=== PATIENT | male | born 1960 | race Caucasian/White ===

== ENCOUNTER → 2016-03-25 | Outpatient (CLI) | payer BC ==
[~2016-03-25] MED LIST: AMLO10TA4 PO; AZITTAB PO; CYM/30 PO; GABA400C PO; HYDR25TA4 PO; METO25TA3 PO; OXYC-57 PO; POTA20TA13 PO; PRED-301 PO
--- NOTE | 2016-03-25 19:23 | DIAGNOSTIC IMAGING REPORT ---
MRI OF THE LUMBAR SPINE WITHOUT IV CONTRAST CLINICAL HISTORY: Lumbar radiculopathy. COMPARISON STUDY: No priors. TECHNIQUE: MRI of the lumbar spine is performed utilizing various T1 and T2-weighted sequences in the axial and sagittal planes. IV contrast was not administered for this examination. FINDINGS: Lumbar spine: Vertebral body height and alignment are maintained throughout the lumbar spine. Marrow signal intensity subtly heterogeneous. No destructive bony lesion is seen. The transverse and spinous processes are intact as visualized. There is no evidence of spondylolysis. Tiny anterior osteophytes are noted in the lower lumbar region. A Schmorl's node is incidentally noted in the superior endplate of L2. Intervertebral discs: There is mild degenerative disc desiccation throughout the lumbar spine. The disc heights appear preserved. Paraspinal cord: The visualized spinal cord is normal in morphology and signal intensity. The conus medullaris terminates at the level of L1. The nerve roots of the cauda equina are normal in morphology. L1-L2: Unremarkable. L2-L3: There is mild posterior disc bulge. The central canal and neural foramina are widely patent. L3-L4: There is mild posterior disc bulge. The central canal and neural foramina are widely patent. There is mild subarticular stenosis. L4-L5: There is a small posterior disc bulge with annular fissure. The central canal and neural foramina are clear. There is mild bilateral subarticular stenosis. L5-S1: There is a small posterior disc bulge with annular fissure. The central canal and neural foramina are patent. There is mild bilateral subarticular stenosis. Facet joint effusions are noted. Mild facet arthropathy is of no consequence. Sacrum: There is significant marrow edema identified within the sacral ala bilaterally, right significantly greater than the left. Findings are consistent with bilateral sacral insufficiency fractures. A large Tarlov's cyst is noted at the level of L3 and measures up to 3 cm. Soft tissues: The paraspinous soft tissues are normal in appearance. The partially visualized retroperitoneal structures are grossly unremarkable, but incompletely assessed. IMPRESSION: 1. There is no large disc herniation, central canal stenosis, or significant neural foraminal narrowing seen throughout the lumbar spine. 2. Mild lumbosacral spondylosis as above. 3. There are bilateral sacral insufficiency fractures with significant associated marrow edema. Dictated: 03/25/2016 6:47 PM Transcribed: 03/25/2016 7:22 PM [id number] Electronically signed by: Ty Urrutia M.D. 03/25/2016 7:27 PM Dictated Date/Time: 03/25/2016 6:47 PM
== END | disposition home or self-care (01) ==
LOC: C.MRIBC 16:34
PROVIDERS: ATTEND Physical Medicine & Rehabilitation
DX: M47.27 Other spondylosis with radiculopathy, lumbosacral region (principal); M84.48XA Pathological fracture, other site, initial encounter for fracture

== ENCOUNTER → 2016-05-05 | Outpatient (CLI) | payer BC, OTHER | END | disposition home or self-care (01) | LOC: C.RDSM 07:45 | PROVIDERS: ATTEND Physical Medicine & Rehabilitation Sports Medicine | DX: M19.011 Primary osteoarthritis, right shoulder (principal); Z96.611 Presence of right artificial shoulder joint ==

== ENCOUNTER → 2016-07-14 | Outpatient (CLI) | payer BC ==
[~2016-07-14] MED LIST changes: +ACET-1256 PO; +AZIT-57 PO; +CYM30 PO; +HYDR25TA5 PO; +NRN400 PO; +NRV/10 PO; +POTA20TA16 PO; +PRD10 PO; +PRVHFAIN INH; +SPRIN INH; +SYMIN INH; +TPRSR/25 PO
== END | disposition home or self-care (01) ==
LOC: C.RDSM 12:05
PROVIDERS: ATTEND Physical Medicine & Rehabilitation Sports Medicine
DX: M48.48XA Fatigue fracture of vertebra, sacral and sacrococcygeal region, initial encounter for fracture (principal); X58.XXXA Exposure to other specified factors, initial encounter

== ENCOUNTER → 2016-07-18 | Outpatient (CLI) | payer BC ==
[~2016-07-18] MED LIST changes: +GADAVIST IV PRN
--- NOTE | 2016-07-18 14:02 | DIAGNOSTIC IMAGING REPORT ---
MRI right hip/pelvis LOWER EXTREMITY JOINT COM CLINICAL HISTORY: R STRESS FX SACROCOCCYGEAL REGION pain TECHNIQUE: Multiaxial MRI acquisition COMPARISON STUDY: None FINDINGS: Signal characteristics indicate nondisplaced cortical fractures of the right superior and inferior right pubic ring. This is considered nondisplaced. There are also vertical fractures of the right as well as left sacral regions immediately medial to the sacroiliac joints bilaterally. There are also nondisplaced. The modest amount of reactive bone marrow edema suggests that the post traumatic findings are subacute. The hips specifically are negative for acute abnormality. There is mild degenerative changes of the articular services. There is no evidence for acetabular protrusion. Bowel pattern is unremarkable. Signal characteristics of the muscular structures are unremarkable. IMPRESSION: 1. Vertical nondisplaced fractures of the right as well as left sacrum immediately medial to the sacroiliac joints. 2. Fracture of the right superior and inferior pubic ring, also nondisplaced.. 3. Post traumatic findings are felt to be subacute. No evidence for displacement. 4. Mild degenerative changes of the hips bilaterally with no acute bony abnormality of those structures. Electronically signed by: Isaías Blount M.D. 07/18/2016 2:01 PM Dictated Date/Time: 07/18/2016 1:53 PM
== END | disposition home or self-care (01) ==
LOC: C.MRI 12:35
PROVIDERS: ATTEND Physical Medicine & Rehabilitation Sports Medicine
DX: S32.19XA Other fracture of sacrum, initial encounter for closed fracture (principal); S32.501A Unspecified fracture of right pubis, initial encounter for closed fracture; X58.XXXA Exposure to other specified factors, initial encounter

== ENCOUNTER → 2016-12-31 | Day surgery (SDC) | payer BC ==
[2016-12-16 08:44] VITALS: Ht 188 cm; Wt 59.1 kg
[~2016-12-31] VITALS: Ht 188 cm; Wt 59.1 kg
[~2016-12-31] MED LIST changes: -ACET-1256 PO; -AZIT-57 PO; +BUPIVACAINE 0.25% 2.5MG/ML PF 10 ML VIAL ONE; -CYM30 PO; -GADAVIST IV PRN; -HYDR25TA5 PO; +IOPAMIDOL INJ 61% 15 ML VIAL ONE; +LIDOCAINE HCL 1% MPF 5 ML VIAL ONE; -NRN400 PO; -NRV/10 PO; -OXYC-57 PO; -POTA20TA16 PO; -PRD10 PO; -PRVHFAIN INH; -SPRIN INH; -SYMIN INH; -TPRSR/25 PO
--- NOTE | 2016-12-31 15:36 | History & Physical Bridge - SC ---
H&P Re-Evaluation Bridge Note: I have examined the patient, reviewed the History & Physical and in the interval since the performance of the History & Physical I have noted the following changes of clinical significance: No changes noted
[2016-12-31 15:51] VITALS: TEMP 37.2
--- NOTE | 2016-12-31 15:55 | Discharge Instructions ---
Discharge Instructions Date of Service Dec 31, 2016. Visit Reason for Visit: Sacroiliitis Discharge Discharge Diagnosis / Problem: low back pain Discharge Goals Goal(s): Decrease discomfort, Improve function Medications Stopped Medications Name(s): no blood thinners Activity Recommendations Activity Limitations: resume your previous activity Anesthesia . Post Anesthesia Instructions: If you have had General Anesthesia or IV Sedation: * Do not drive today. * Resume driving when surgeon permits. * Do not make important decisions or sign legal documents today. * Call surgeon for: 1. Temperature elevations greater than 101 degrees F. 2. Uncontrollable pain. 3. Excessive bleeding. 4. Persistent nausea and vomiting. 5. Medication intolerance (nausea, vomiting or rash). * For nausea and vomiting use only clear liquids such as: tea, soda, bouillon until nausea subsides, then gradually increase diet as tolerated. * If you have any concerns or questions, call your surgeon's office. If physician is unavailable and it is an emergency, call 911 or go to the nearest emergency room. . Diet Recommendations Recommended Home Diet: resume previous diet Procedures Procedures Performed: RIGHT SACROILIAC JOINT INJECTION Pending Studies Studies pending at discharge: no Medical Emergencies . Who to Call and When: Medical Emergencies: If at any time you feel your situation is an emergency, please call 911 immediately. . Non-Emergent Contact Non-Emergency issues call your: Specialist . . "Provider Documentation" section prepared by Aaron Yee. .
[2016-12-31 15:57] VITALS: BP 126/87; PULSE 57; O2SAT 96
--- NOTE | 2016-12-31 16:11 | OPERATIVE REPORT ---
DATE OF OPERATION: 12/31/2016 PREOPERATIVE DIAGNOSES: Right sacroiliitis, history of trauma. POSTOPERATIVE DIAGNOSES: Same. PROCEDURE: Right sacroiliac joint injection under fluoroscopic guidance. INDICATIONS: The patient is a 56-year-old white male who was evaluated in the office with a 1-year history of low back pain following a fall. He was localizing pain to the sacroiliac joint. His physical examination was consistent with this and he presents today for an SI joint injection to relieve the pain that he experienced emanating from the SI joint. PHYSICAL EXAMINATION: Pleasant male seated comfortably. He has point tenderness to palpation of the right SI joint. This is worse with extension. He had a positive Elva maneuver, positive sacral distraction and compression maneuvers. CONSENT: Verbal and written consent was obtained from the patient. Risks and benefits were reviewed. Risks include but are not limited to abscess and allergic reaction. The patient wishes to proceed. DESCRIPTION OF PROCEDURE: The patient was taken back to the special procedures room of the [facility] where he was maintained in a prone position. Backside was cleansed with Betadine x3 and a dry sterile dressing was applied. Fluoroscope was used to identify the right SI joint and the overlying skin was anesthetized with 2.5 mL of lidocaine 1% with a 25-gauge 1.5-inch needle. A 25-gauge 3.5-inch spinal needle was then directed into the joint. He then underwent injection with Isovue 300 contrast 0.25 of a mL, which demonstrated intraarticular uptake. He then underwent injection after negative aspiration of 40 mg of Depo-Medrol and 1.5 mL of bupivacaine 0.25%. Injection was well tolerated. DISPOSITION: 1. The patient was taken out into the discharge recovery area where he will be discharged home once discharge criteria have been met. 2. Follow up in the [facility] office in 2-4 weeks. I attest to the content of the Intraoperative Record and any orders documented therein. Any exception s are noted below.
== END | disposition home or self-care (01) ==
LOC: X.SURG 14:11
PROVIDERS: ATTEND Physical Medicine & Rehabilitation
DX: M46.1 Sacroiliitis, not elsewhere classified (principal); Z91.81 History of falling

== ENCOUNTER → 2017-01-19 | Outpatient (CLI) | payer BC ==
[~2017-01-19] MED LIST changes: +ACET-1256 PO; -BUPIVACAINE 0.25% 2.5MG/ML PF 10 ML VIAL ONE; +CYM30 PO; +HYDR25TA5 PO; -IOPAMIDOL INJ 61% 15 ML VIAL ONE; -LIDOCAINE HCL 1% MPF 5 ML VIAL ONE; +NRN400 PO; +NRV/10 PO; +POTA20TA16 PO; +TPRSR/25 PO
== END | disposition home or self-care (01) ==
LOC: C.RDSM 11:52
PROVIDERS: ATTEND Physical Medicine & Rehabilitation Sports Medicine
DX: R52 Pain, unspecified (principal)

== ENCOUNTER 2017-01-26 18:44 | Inpatient (IN) | payer BC ==
[~2017-01-26] VITALS: Ht 190.5 cm; Wt 57.8 kg
[~2017-01-26 18:44] MED LIST changes: -ACET-1256 PO; -CYM30 PO; -HYDR25TA5 PO; -NRN400 PO; -NRV/10 PO; -POTA20TA16 PO; -TPRSR/25 PO
[2017-01-26] MEDS ORDERED: METHYLPREDNISOLONE 125 MG VIAL IV STA (19:03)
[2017-01-26] MEDS ORDERED: MAGNESIUM SULFATE 1GM / D5W 1 GM BAG IV STA (19:03)
[2017-01-26] MEDS ORDERED: ALBUT/IPRATROP 3MG/0.5MG NEB 3 ML VIAL INH STA (19:03)
--- NOTE | 2017-01-26 19:07 | EMERGENCY ROOM VISIT NOTE ---
History Report prepared by Blaine: Js Bowens Under the Supervision of: Dr. Cecil Serrano M.D. First contact with patient: 18:51 Chief Complaint: SHORTNESS OF BREATH Stated Complaint: SOB - RESP Nursing Triage Summary: Pt presents with c/o SOB since Sat. NPC. Pulse ox 89% at home. Hx of ephysema. Pain in right hip. Denies cp. History of Present Illness The patient is a 57 year old male with a past medical history of an AAA, HTN, COPD, and VT, who presents to the ED with a cc of constant SOB beginning 2 days ago. Positive for a mild productive cough and cigarette smoking. Negative leg pain, leg swelling, and recent car travel. The patient states that his symptoms started 2 days ago, and since, he has not been able to take more than a few steps without feeling SOB. He notes that prior to 2 days ago, he had no restriction to his movement due to his breathing. He reports that he typically uses a Z pack and prednisone. He denies any history of blood clots and oxygen usage at home. The patient had a right SI joint injection by Dr. Yee. Source of History: patient Onset: 2 days ago Position: chest Quality: other (SOB) Timing: constant Modifying Factors (Worsening): exertion Associated Symptoms: + cough (mild productive cough) Note: He denies any leg pain and leg swelling. Review of Systems See HPI for pertinent positives and negatives. A total of ten systems were reviewed and were otherwise negative. Past Medical & Surgical Medical Problems: (1) Aortic aneurysm (2) COPD (chronic obstructive pulmonary disease) (3) History of right shoulder replacement (4) HTN (hypertension) (5) Hx of VT Family History Heart disease Lung disease Social History Smoking Status: Current Every Day Smoker Drug Use: none Marital Status: Housing Status: lives with significant other Occupation Status: employed Current/Historical Medications Scheduled Amlodipine Besylate (Amlodipine Besylate), 5 MG PO QAM Duloxetine HCl (Duloxetine HCl), 30 MG PO QAM Gabapentin (Gabapentin), 400 MG PO QID Hydrochlorothiazide (Hydrochlorothiazide), 25 MG PO QAM Metoprolol Succinate (Metoprolol Succinate ER), 12.5 MG PO QPM Potassium Ext Rel (Klor-Con), 20 MEQ PO QAM Scheduled PRN Acetaminophen (Tylenol), 1,000 MG PO Q6H PRN for Pain Azithromycin (Zithromax Z-Tc), 1 PKT PO UD PRN for Rescue Prednisone (Prednisone), 5 MG PO UD PRN for Rescue Allergies Coded Allergies: Penicillins (Verified Allergy, Severe, CONVULSIONS, 12/31/16) Lisinopril (Unverified Adverse Reaction, Unknown, FELT WEIRD, 12/31/16) Physical Exam Vital Signs Date Time Temp Pulse Resp B/P (MAP) Pulse Ox O2 Delivery O2 Flow Rate FiO2 01/26/17 19:55 85 22 143/92 93 Nasal Cannula 2.0 01/26/17 19:22 96 Nasal Cannula 2.0 01/26/17 19:22 96 Nasal Cannula 2.0 01/26/17 18:46 37.1 96 24 100/76 85 Room Air Physical Exam GENERAL: Awake, alert, well-appearing, NAD, labored breathing. HENT: Normocephalic, atraumatic. EYES: Normal conjunctiva. Sclera non-icteric. NECK: Supple. No nuchal rigidity. FROM. RESPIRATORY: CTAB, no rhonchi, wheezing, crackles, diffuse inspiratory and expiratory breathing, retraction of intercostal muscles. CARDIAC: RRR, no MRG ABDOMEN: Soft, NTND, BS+ MSK: No chest wall TTP, no LE jonathan, no calf pain. NEURO: GCS 15, CN 2-12 intact, moves all 4s on command SKIN: No rash or jaundice noted. Medical Decision & Procedures ER Provider Diagnostic Interpretation: Radiology results as stated below per my review and radiologist interpretation: CHEST ONE VIEW PORTABLE FINDINGS: Emphysematous change. No focal infiltrate. Slight chronic interstitial prominence. Operative changes right shoulder consistent with prior arthroplasty. IMPRESSION: Significant emphysematous change. No acute infiltrate. The above report was generated using voice recognition software. It may contain grammatical, syntax or spelling errors. Electronically signed by: Isaías Blount M.D. 01/26/2017 7:31 PM Laboratory Results 01/26/17 19:20 Red Blood Count 4.55, Mean Corpuscular Volume 88.6, Mean Corpuscular Hemoglobin 32.3, Mean Corpuscular Hemoglobin Concent 36.5, Mean Platelet Volume 9.5, Neutrophils (%) (Auto) 79.8, Lymphocytes (%) (Auto) 6.1, Monocytes (%) (Auto) 13.2, Eosinophils (%) (Auto) 0.6, Basophils (%) (Auto) 0.1, Neutrophils # (Auto ) 8.44, Lymphocytes # (Auto) 0.65, Monocytes # (Auto) 1.40, Eosinophils # (Auto ) 0.06, Basophils # (Auto) 0.01 01/26/17 19:20 Test 01/26/17 19:20 White Blood Count 10.58 K/uL (4.8-10.8) Red Blood Count 4.55 M/uL (4.7-6.1) Hemoglobin 14.7 g/dL (14.0-18.0) Hematocrit 40.3 % (42-52) Mean Corpuscular Volume 88.6 fL (80-100) Mean Corpuscular Hemoglobin 32.3 pg (25-34) Mean Corpuscular Hemoglobin Concent 36.5 g/dl (32-36) Platelet Count 196 K/uL (130-400) Mean Platelet Volume 9.5 fL (7.4-10.4) Neutrophils (%) (Auto) 79.8 % Lymphocytes (%) (Auto) 6.1 % Monocytes (%) (Auto) 13.2 % Eosinophils (%) (Auto) 0.6 % Basophils (%) (Auto) 0.1 % Neutrophils # (Auto) 8.44 K/uL (1.4-6.5) Lymphocytes # (Auto) 0.65 K/uL (1.2-3.4) Monocytes # (Auto) 1.40 K/uL (0.11-0.59) Eosinophils # (Auto) 0.06 K/uL (0-0.5) Basophils # (Auto) 0.01 K/uL (0-0.2) RDW Standard Deviation 39.4 fL (36.4-46.3) RDW Coefficient of Variation 12.3 % (11.5-14.5) Immature Granulocyte % (Auto) 0.2 % Immature Granulocyte # (Auto) 0.02 K/uL (0.00-0.02) Anion Gap 9.0 mmol/L (3-11) Est Creatinine Clear Calc Drug Dose 85.0 ml/min Estimated GFR () 115.9 Estimated GFR (Non- 100.0 BUN/Creatinine Ratio 20.0 (10-20) Calcium Level 8.8 mg/dl (8.5-10.1) Total Bilirubin 1.0 mg/dl (0.2-1) Aspartate Amino Transf (AST/SGOT) 15 U/L (15-37) Alanine Aminotransferase (ALT/SGPT) 19 U/L (12-78) Alkaline Phosphatase 172 U/L (45-117) Troponin I < 0.015 ng/ml (0-0.045) Total Protein 7.4 gm/dl (6.4-8.2) Albumin 3.4 gm/dl (3.4-5.0) Globulin 4.0 gm/dl (2.5-4.0) Albumin/Globulin Ratio 0.9 (0.9-2) Laboratory results reviewed by me Medications Administered Medications (Trade) Dose Ordered Sig/Noe Route Start Time Stop Time Status Last Admin Dose Admin Albuterol/ Ipratropium (Duoneb) 12 ml ONE STAT INH 01/26/17 19:03 01/26/17 19:05 DC 01/26/17 19:15 12 ML Magnesium Sulfate (Magnesium Sulfate) 1 gm NOW STAT IV 01/26/17 19:03 01/26/17 19:05 DC 01/26/17 19:16 1 GM Methylprednisolone Sodium Succinate (Solu-Medrol IV) 125 mg NOW STAT IV 01/26/17 19:03 01/26/17 19:05 DC 01/26/17 19:16 125 MG Azithromycin (Zithromax Tab) 500 mg NOW ONCE PO 01/26/17 19:15 01/26/17 19:16 DC 01/26/17 19:16 500 MG ECG Indication: SOB/dyspnea Rate (beats per minute): 88 Rhythm: normal sinus Findings: left axis deviation, other (Normal intervals, no STS changes or TWI) ED Course 1858: The patient was evaluated in room A9. A complete history and physical exam was performed. 2040: I reevaluated and updated the patient. He still has some difficult expiratory breathing. He is in agreement with the treatment plan. 2043: Upon reexamination, the patient was stable. I discussed the test results and treatment plan with Dr. Alex - [facility]. The patient will be evaluated for further management. Medical Decision The patient is a 57 year old male with a past medical history of an AAA, HTN, COPD, and VT, who presents to the ED with a cc of SOB beginning 2 days ago. Positive for a mild productive cough and cigarette smoking. Negative leg pain, leg swelling, and recent car travel. Differential diagnosis: Etiologies such as infections, reactive airway disease, pneumonia, pneumothorax , COPD, CHF, cardiac ischemia, pulmonary embolism, musculoskeletal, gastrointestinal, as well as others were entertained. Patient was seen and evaluated the bedside. Patient isn't been complaining of some shortness of breath and ongoing and Thursday. Patient states that more than 3 steps without being very short of breath and rest. Patient has no prior history of heart failure. Patient states he does have a minor heart attack but that he was not stented and he did not have a CABG. Patient states that he still smokes. Patient states he smoked about a half pack since last . Patient does complain of some cough but is unsure as to the color as he does not spit it out. Patient has a history of COPD but he's not been taking his inhalers or other medications. Patient was hypoxic and was fairly tachypneic with some mildly labored breathing with inspiratory and expiratory wheezing. Patient did have blood work, EKG, troponin. Patient also had a chest x-ray. Patient did receive DuoNeb's, azithromycin, steroids, and magnesium. Patient was reassessed. I did speak with the hospitalist who agreed to admit the patient for further evaluation and treatment. Medication Reconcilliation Current Medication List: was personally reviewed by me Blood Pressure Screening Patient's blood pressure: Elevated blood pressure Blood pressure disposition: Referred to PCP Consults Time Called: 2040 Consulting Physician: Dr. Alex - [facility] Thras[facility] Returned Call: 2043 Discussed the patient's case. The patient will be evaluated for further treatment and disposition. Impression Primary Impression: COPD with acute exacerbation Additional Impressions: Respiratory failure with hypoxia Encounter for smoking cessation counseling Hyponatremia Scribe Attestation The scribe's documentation has been prepared under my direction and personally reviewed by me in its entirety. I confirm that the note above accurately reflects all work, treatment, procedures, and medical decision making performed by me. Departure Information Dispostion Being Evaluated By Hospitalist Referrals Isaías Noriega M.D. (PCP) Forms HOME CARE DOCUMENTATION FORM, IMPORTANT VISIT INFORMATION Patient Instructions My [facility] Problem Qualifiers Additional Impressions: Respiratory failure with hypoxia Chronicity: acute Qualified Codes: J96.01 - Acute respiratory failure with hypoxia
[2017-01-26] MEDS ORDERED: AZITHROMYCIN 250 MG TAB PO ONE (19:15)
[2017-01-26] MEDS ORDERED: NRV/10 PO (19:33)
[2017-01-26] MEDS ORDERED: HYDR25TA5 PO (19:33)
[2017-01-26] MEDS ORDERED: TPRSR/25 PO (19:33)
[2017-01-26] MEDS ORDERED: NRN400 PO (19:33)
[2017-01-26] MEDS ORDERED: CYM30 PO (19:33)
[2017-01-26] MEDS ORDERED: POTA20TA16 PO (19:33)
--- NOTE | 2017-01-26 19:33 | DIAGNOSTIC IMAGING REPORT ---
CHEST ONE VIEW PORTABLE CLINICAL HISTORY: SOB, emphysema, hypoxia dyspnea COMPARISON STUDY: 05/21/2015 FINDINGS: Emphysematous change. No focal infiltrate. Slight chronic interstitial prominence. Operative changes right shoulder consistent with prior arthroplasty. IMPRESSION: Significant emphysematous change. No acute infiltrate. The above report was generated using voice recognition software. It may contain grammatical, syntax or spelling errors. Electronically signed by: Isaías Blount M.D. 01/26/2017 7:31 PM Dictated Date/Time: 01/26/2017 7:30 PM
[2017-01-26] MEDS ORDERED: ACET-1256 PO (19:35)
[2017-01-26 19:46] LABS: BASO % 0.1 %; BASO ABS # 0.01 K/uL (0-0.2); COMPLETE YES; EOS % 0.6 %; HEMATOCRIT 40.3 % (42-52); IG% 0.2 %; LYMPH % 6.1 %; LYMPH ABS # 0.65 K/uL (1.2-3.4); MEAN CELL VOLUME 88.6 fL (80-100); MEAN CORPUSCULAR HEMOGLOBIN 32.3 pg (25-34); MEAN CORPUSCULAR HGB CONC 36.5 g/dl (32-36); MEAN PLATELET VOLUME 9.5 fL (7.4-10.4); MONO % 13.2 %; NEUT % 79.8 %; PLATELET COUNT 196 K/uL (130-400); RED BLOOD COUNT 4.55 M/uL (4.7-6.1); WHITE BLOOD COUNT 10.58 K/uL (4.8-10.8)
[2017-01-26 20:09] LABS: CALCIUM 8.8 mg/dl (8.5-10.1); CREATININE 0.77 mg/dl (0.60-1.40); POTASSIUM 3.2 mmol/L (3.5-5.1)
[2017-01-26 20:12] LABS: ALB/GLOB RATIO 0.9 (0.9-2)
[2017-01-26] MEDS ORDERED: ENOXAPARIN 40 MG/0.4 ML SYR SC SCH (21:00)
[2017-01-26] MEDS ORDERED: MAGNESIUM HYDROXIDE SUSP 30 ML UDC PO PRN (21:00)
[2017-01-26] MEDS ORDERED: ONDANSETRON INJ 2 MG/ML 2 ML VIAL IV PRN (21:00)
[2017-01-26] MEDS ORDERED: ALUMINUM/MAGNESIUM/SIMETH (MAALOX MAX) 30 ML UDC PO PRN (21:00)
[2017-01-26] MEDS ORDERED: ACETAMINOPHEN 325 MG TAB PO PRN (21:00)
[2017-01-26 21:54] VITALS: BP 99/66; PULSE 85; TEMP 37; O2SAT 92; Ht 190.5 cm; Wt 57.8 kg
[2017-01-26] MEDS: SODIUM CHLORIDE 0.9% 1000ML 1,000 ML IV SCH (22:08)
[2017-01-26 22:24] VITALS: BP 103/72
[2017-01-26 22:36] LABS: VEN BLD GAS O2 SATURATION 86.8 %; VEN BLOOD GAS BASE EXCESS 3.7 mEq/L
[2017-01-26] MEDS: METOPROLOL SUCC 25MG EXT REL TAB PO SCH (22:36)
[2017-01-26] MEDS: GABAPENTIN 400 MG CAP PO SCH ×2 (22:36→22:37)
[2017-01-26 22:41] LABS: INR 1.1 (0.9-1.1); PROTHROMBIN TIME (PATIENT) 11.4 SECONDS (9.0-12.0)
--- NOTE | 2017-01-26 22:41 | History and Physical ---
History & Physical Date & Time of Service: Jan 26, 2017 at 22:18 Chief Complaint: Copd With Acute Exacerbation Primary Care Physician: Isaías Noriega M.D. History of Present Illness Source: patient, clinic records, hospital records This is a 57 year old male with a PMH of severe COPD, ongoing tobacco use disorder, weight loss, HTN, dilatation of thoracic aorta, chronic shoulder arthralgia - presents with worsening shortness of breath - states he could not get a deep breath in; could not move around due to worsening shortness of breath - also had a cough and sputum production. This has been ongoing for around 3 days. He asked his PCP for a script for a rescue kit, which includes a prednisone taper and a Z-awais - he did not receive this in time as his breathing became worse and he had to come to the ER. Upon presentation, he had a CXR suggesting emphysematous changes. He received solu-medrol in the ED and he felt better. States he still smokes about 4-5 cigarettes daily. He states he has lost an unknown amount of weight in the past year and cannot put it back on. Denies fevers/chills, denies chest pain/palpitations, no nausea/vomiting/ diarrhea. Past Medical/Surgical History Medical Problems: (1) Aortic aneurysm Status: Chronic (2) COPD (chronic obstructive pulmonary disease) Status: Chronic (3) History of right shoulder replacement Status: Resolved (4) HTN (hypertension) Status: Chronic (5) Hx of GA Status: Resolved Family History Heart disease Lung disease Social History Smoking Status: Current Every Day Smoker Drug Use: none Marital Status: Housing status: lives with family Occupational Status: employed Immunizations History of Influenza Vaccine: No History of Tetanus Vaccine?: UNSURE History of Pneumococcal: No History of Hepatitis B Vaccine: No Multi-Drug Resistant Organisms History of MDRO: No Allergies Coded Allergies: Penicillins (Verified Allergy, Severe, CONVULSIONS, 12/31/16) Lisinopril (Unverified Adverse Reaction, Unknown, FELT WEIRD, 12/31/16) Home Medications Scheduled Amlodipine Besylate (Amlodipine Besylate), 5 MG PO QAM Duloxetine HCl (Duloxetine HCl), 30 MG PO QAM Gabapentin (Gabapentin), 400 MG PO QID Hydrochlorothiazide (Hydrochlorothiazide), 25 MG PO QAM Metoprolol Succinate (Metoprolol Succinate ER), 12.5 MG PO QPM Potassium Ext Rel (Klor-Con), 20 MEQ PO QAM Scheduled PRN Acetaminophen (Tylenol), 1,000 MG PO Q6H PRN for Pain Azithromycin (Zithromax Z-Awais), 1 PKT PO UD PRN for Rescue Prednisone (Prednisone), 5 MG PO UD PRN for Rescue Review of Systems Constitutional: + weight loss, + weakness, No fever, No chills, No sweats, No fatigue Eyes: No worsening of vision ENT: No hearing loss Respiratory: + cough, + sputum, + wheezing, + shortness of breath, + dyspnea on exertion, No dyspnea at rest, No hemoptysis Cardiovascular: No chest pain, No edema, No palpitations Abdomen: No pain, No nausea, No vomiting, No diarrhea, No constipation, No GI bleeding Musculoskeletal: + joint pain (chronic R shoulder pain), No muscle pain Genitourinary - Male: No hematuria, No dysuria, No urinary frequency, No urinary urgency Neurologic: + weakness, No numbness/tingling, No vertigo, No balance problems Psychiatric: No depression symptoms, No anxiety, No insomnia Endocrine: No fatigue Hematologic / Lymphatic: No abnormal bleeding/bruising Integumentary: No rash Allergic / Immunologic: No environmental allergies, No seasonal allergies Physical Exam Vital Signs Date Time Temp Pulse Resp B/P (MAP) Pulse Ox O2 Delivery O2 Flow Rate FiO2 01/26/17 21:54 37.0 85 20 99/66 92 Nasal Cannula 2.0 01/26/17 21:14 94 18 96/65 92 Nasal Cannula 2.0 01/26/17 19:55 85 22 143/92 93 Nasal Cannula 2.0 01/26/17 19:22 96 Nasal Cannula 2.0 01/26/17 19:22 96 Nasal Cannula 2.0 01/26/17 18:46 37.1 96 24 100/76 85 Room Air General Appearance: + mild distress (secondary to shortness of breath; supplemental O2 via NC), + cachetic, + thin Head: normocephalic, atraumatic Eyes: normal inspection ENT: hearing grossly normal Neck: supple Respiratory/Chest: no respiratory distress, no accessory muscle use, + decreased breath sounds, + wheezing, + pertinent finding (chset tightness with decreased aeration throughout the lung zamora bilaterally) Cardiovascular: regular rate, rhythm, no edema, no gallop, no JVD, no murmur, normal peripheral pulses Abdomen/GI: normal bowel sounds, non tender, soft Extremities/Musculoskelatal: normal capillary refill, no pedal edema Neurologic/Psych: no motor/sensory deficits, alert, normal mood/affect Skin: normal color Lymphatic: no adenopathy Diagnostics Laboratory Results Results Past 24 Hours Test 01/26/17 18:53 01/26/17 19:20 01/26/17 20:56 01/26/17 22:09 Range/Units White Blood Count 10.58 4.8-10.8 K/uL Red Blood Count 4.55 4.7-6.1 M/uL Hemoglobin 14.7 14.0-18.0 g/dL Hematocrit 40.3 42-52 % Mean Corpuscular Volume 88.6 80-100 fL Mean Corpuscular Hemoglobin 32.3 25-34 pg Mean Corpuscular Hemoglobin Concent 36.5 32-36 g/dl Platelet Count 196 130-400 K/uL Mean Platelet Volume 9.5 7.4-10.4 fL Neutrophils (%) (Auto) 79.8 % Lymphocytes (%) (Auto) 6.1 % Monocytes (%) (Auto) 13.2 % Eosinophils (%) (Auto) 0.6 % Basophils (%) (Auto) 0.1 % Neutrophils # (Auto) 8.44 1.4-6.5 K/uL Lymphocytes # (Auto) 0.65 1.2-3.4 K/uL Monocytes # (Auto) 1.40 0.11-0.59 K/uL Eosinophils # (Auto) 0.06 0-0.5 K/uL Basophils # (Auto) 0.01 0-0.2 K/uL RDW Standard Deviation 39.4 36.4-46.3 fL RDW Coefficient of Variation 12.3 11.5-14.5 % Immature Granulocyte % (Auto) 0.2 % Immature Granulocyte # (Auto) 0.02 0.00-0.02 K/uL Sodium Level 123 136-145 mmol/L Potassium Level 3.2 3.5-5.1 mmol/L Chloride Level 83 98-107 mmol/L Carbon Dioxide Level 30 21-32 mmol/L Anion Gap 9.0 3-11 mmol/L Blood Urea Nitrogen 15 7-18 mg/dl Creatinine 0.77 0.60-1.40 mg/dl Est Creatinine Clear Calc Drug Dose 85.0 ml/min Estimated GFR () 115.9 Estimated GFR (Non- 100.0 BUN/Creatinine Ratio 20.0 10-20 Random Glucose 92 70-99 mg/dl Calcium Level 8.8 8.5-10.1 mg/dl Total Bilirubin 1.0 0.2-1 mg/dl Aspartate Amino Transf (AST/SGOT) 15 15-37 U/L Alanine Aminotransferase (ALT/SGPT) 19 12-78 U/L Alkaline Phosphatase 172 45-117 U/L Troponin I < 0.015 0-0.045 ng/ml Total Protein 7.4 6.4-8.2 gm/dl Albumin 3.4 3.4-5.0 gm/dl Globulin 4.0 2.5-4.0 gm/dl Albumin/Globulin Ratio 0.9 0.9-2 Diagnostic Radiology CHEST ONE VIEW PORTABLE CLINICAL HISTORY: SOB, emphysema, hypoxia dyspnea COMPARISON STUDY: 05/21/2015 FINDINGS: Emphysematous change. No focal infiltrate. Slight chronic interstitial prominence. Operative changes right shoulder consistent with prior arthroplasty. IMPRESSION: Significant emphysematous change. No acute infiltrate. EKG Normal sinus rhythm Biatrial enlargement Left axis deviation Impression Assessment and Plan This is a 57 year old male with a PMH of severe COPD, ongoing tobacco use disorder, weight loss, HTN, dilatation of thoracic aorta, chronic shoulder arthralgia - presents with worsening shortness of breath Acute COPD Exacerbation patient with ongoing tobacco use CXR = emphysematous changes as per records, he has severe COPD, but does not use any maintenance medications /inhalers was given IV steroids in the ED as well as nebulizer treatments and felt better will give IV solu-medrol 40mg q8hrs given Azithromycin 500mg x1 in the ED, will continue 250mg x4 days duonebs as needed consulted pulmonology - patient should be on maintenance inhalers with outpatient f/u with pulm Tobacco Use Disorder patient with ongoing tobacco use; about 4-5 cigarettes per day counseled on cessation patient with weight loss, hyponatremia, elevated alk phos will check diagnostic CT chest to r/o malignancy Hyponatremia gentle IV hydration check urine, serum osm HTN continue amlodipine holding HCTZ for now due to hyponatremia Dilatation of Thoracic Aorta continue b-wesley DVT ppx Lovenox FULL CODE Advanced Directives Existing Living Will: No Existing Power of Combination Machine Tool Setter: No VTE Prophylaxis VTE Risk Assessment Done? Y/N: Yes Risk Level: Moderate
[2017-01-27] VITALS (11 sets, daily range): BP systolic 95–110; BP diastolic 58–73; PULSE 64–81; TEMP 36.4–36.9; O2SAT 87–97
[2017-01-27 02:40] LABS: HEMATOCRIT 37.3 % (42-52); MEAN CELL VOLUME 87.8 fL (80-100); MEAN CORPUSCULAR HEMOGLOBIN 32.2 pg (25-34); MEAN CORPUSCULAR HGB CONC 36.7 g/dl (32-36); MEAN PLATELET VOLUME 9.1 fL (7.4-10.4); PLATELET COUNT 175 K/uL (130-400); RED BLOOD COUNT 4.25 M/uL (4.7-6.1); WHITE BLOOD COUNT 9.18 K/uL (4.8-10.8)
[2017-01-27 03:10] LABS: BLOOD UREA NITROGEN 13 mg/dl (7-18); BUN/CREATININE RATIO 17.5 (10-20); CALCIUM 8.2 mg/dl (8.5-10.1); CARBON DIOXIDE 30 mmol/L (21-32); CHLORIDE 87 mmol/L (98-107); CREATININE 0.77 mg/dl (0.60-1.40); GLUCOSE 178 mg/dl (70-99); MAGNESIUM 2.1 mg/dl (1.8-2.4); POTASSIUM 3.3 mmol/L (3.5-5.1); SODIUM 125 mmol/L (136-145)
[2017-01-27 03:15] LABS: CKMB/CK RATIO 2.4 (0-3.0)
[2017-01-27] MEDS: METHYLPREDNISOLONE IV 40 MG in SYRINGE 0 ML IV SCH ×3 (04:45→20:31)
[2017-01-27] MEDS: ALBUT/IPRATROP 3MG/0.5MG NEB 3 ML VIAL INH SCH ×4 (07:18→19:10)
[2017-01-27] MEDS: ENOXAPARIN 30 MG/0.3 ML SYR SC SCH (07:36)
[2017-01-27] MEDS: GABAPENTIN 400 MG CAP PO SCH ×4 (07:37→20:32)
[2017-01-27] MEDS: AMLODIPINE BESYLATE 5 MG TAB PO SCH (07:37)
[2017-01-27] MEDS: AZITHROMYCIN 250 MG TAB PO SCH (07:38)
[2017-01-27] MEDS: DULOXETINE (CYMBALTA) 30 MG CAP PO SCH (07:38)
[2017-01-27] MEDS ORDERED: INFLUENZA ADMINISTRATION CHARGE ONE (08:00)
[2017-01-27] MEDS ORDERED: BOOST BREEZE NUTRITION DRINK 1 BOX PO SCH (08:00)
[2017-01-27] MEDS ORDERED: PNEUMOCOCCAL ADMINISTRATION CHARGE ONE (08:00)
[2017-01-27] MEDS ORDERED: PNEUMOCOCCAL POLYSACCHARIDES 25 MCG/0.5 ML VIAL/SYR IM. ONE (08:00)
[2017-01-27] MEDS ORDERED: INFLUENZA VIRUS QUAD VACCINE 0.5 ML SYR IM. ONE (08:00)
[2017-01-27] MEDS ORDERED: OPTIRAY 320 IV PRN (08:45)
[2017-01-27] MEDS ORDERED: POTASSIUM CHLORIDE 20 MEQ TABCR PO SCH (09:00)
--- NOTE | 2017-01-27 09:20 | DIAGNOSTIC IMAGING REPORT ---
CT SCAN OF THE CHEST WITH IV CONTRAST CLINICAL HISTORY: Weight loss. COPD exacerbation. COMPARISON STUDY: Chest x-ray dated 01/26/2017. Chest CT scans dated 05/21/2015 and 02/01/2013. TECHNIQUE: Following the IV administration of 119 cc of Optiray 320, CT scan of the thorax was performed from the thoracic inlet to the upper abdomen. Images are reviewed in the axial, sagittal, and coronal planes. IV contrast was administered without complication. A dose lowering technique was utilized adhering to the principles of ALARA. CT DOSE: 237.83 mGy.cm FINDINGS: Thyroid: Imaged portions of the thyroid gland are normal in size and attenuation. Thoracic aorta: There is mild atherosclerotic calcification of the thoracic aorta. There is mild aneurysmal dilatation of the ascending thoracic aorta which measures up to 4.3 cm. The remainder of the thoracic aorta is normal in caliber, and the arch demonstrates standard 3-vessel anatomy. No dissection is seen. Pulmonary vasculature: The pulmonary trunk is normal in caliber. There are no filling defects identified in the central pulmonary vessels to indicate pulmonary embolus. Note that this examination was not protocoled for evaluation of the pulmonary arteries. Heart: The heart is normal in size and configuration, and without pericardial effusion. The coronary arteries are densely calcified. Lungs and pleural spaces: Advanced emphysema is identified with biapical bullous change. Secretions are noted in the trachea. Mucous plugging/secretions are present within the lower lobe airways bilaterally. There is no airspace consolidation or pleural effusion. A small fat-containing Bochdalek hernia is seen at the right lung base. Diffuse peribronchial thickening is identified. There is an irregular groundglass lesion in the left upper lobe seen on image #144 and measuring 1.3 cm. This contains tiny central cystic spaces, end is significantly more apparent than on the 2016 examination. A similar-appearing lesion in the right lower lobe as seen on image #183 and measures up to 0.9 cm. This is also increasingly conspicuous from previous. A similar-appearing lesion in the right upper lobe as seen on image #146 and measures up to 1.3 cm. This is new from previous. Mediastinum: There is no mediastinal lymphadenopathy. Jael: Clear. Axillae: There is no axillary lymphadenopathy. Upper abdomen: Partially visualized upper abdominal viscera is within normal limits. Skeletal structures: Mild degenerative change and hyperkyphosis are noted in the thoracic spine. A hemangioma is noted in the body of L3. No lytic or blastic bony lesions are seen. There are ovoid low-attenuation lesions present within the right neural foramina at T8-T9, T9-T10, T10-T11, and T11-T12. Similar appearing low-attenuation lesion is seen on the left at T9-T10, T10-T11, and T11-T12. These are unchanged from prior examinations. A right shoulder arthroplasty is in place. Soft tissues: The patient is cachectic. IMPRESSION: 1. Advanced emphysema. 2. There is no lobar consolidation or pleural effusion. Mild diffuse peribronchial thickening suggests reactive airway disease. Clinical correlation will be required. 3. There are 3 irregular groundglass lesions with central cystic foci identified in the left upper lobe, the right upper lobe, and the right lower lobe. These measure up to 1.3 cm, and at least 2 of these are significantly more conspicuous than on the 2016 examination. Although these could be on an infectious/inflammatory basis, neoplasm is the diagnosis of exclusion. A follow-up chest CT in 1-2 months time is recommended for reassessment. 4. Again seen is aneurysmal dilatation of the ascending thoracic aorta which measures up to 4.3 cm. 5. There are numerous low-attenuation lesions identified within the neural foramina of the thoracic spine as above. These are not significantly changed dating back to 2013. Top differential considerations include small pseudomeningoceles, nerve sheath cysts, or nerve sheath tumors such as schwannomas. These are of doubtful significance given long-term stability. 6. Additional findings as above. Electronically signed by: Ty Urrutia M.D. 01/27/2017 9:18 AM Dictated Date/Time: 01/27/2017 8:48 AM
[2017-01-27] MEDS: SODIUM CHLORIDE 0.9% 1000ML 1,000 ML IV SCH ×2 (10:24→23:23)
--- NOTE | 2017-01-27 11:15 | Progress Note ---
Medicine Progress Note Date & Time of Visit: Jan 27, 2017 at 11:15 . Subjective No fever. Persistent congested cough, nonproductive. Less SOB. No chest pain. No nausea, vomiting, diarrhea. No urinary symptoms. . Objective Last 8 Hrs Date Time Temp Pulse Resp B/P (MAP) Pulse Ox O2 Delivery O2 Flow Rate FiO2 01/27/17 08:00 Nasal Cannula 2.0 01/27/17 07:51 36.5 69 16 110/73 (85) 87 Room Air 01/27/17 07:18 73 16 90 Nasal Cannula 2.0 01/27/17 05:07 36.4 65 17 103/71 (82) 97 Room Air 01/27/17 04:00 Nasal Cannula 2.0 Physical Exam: General- mild tachypnea at rest Lungs- diffuse moderate wheezing, scattered rhonchi Heart- RRR, no murmur or gallop appreciated Abdomen- + BS, soft, nontender Extremities- no pretibial edema or calf tenderness Neuro- alert, oriented Skin- warm and dry . Laboratory Results: Last 24 Hours Test 01/26/17 19:20 01/26/17 22:19 01/27/17 02:23 01/27/17 10:49 White Blood Count 10.58 K/uL 9.18 K/uL Red Blood Count 4.55 M/uL 4.25 M/uL Hemoglobin 14.7 g/dL 13.7 g/dL Hematocrit 40.3 % 37.3 % Mean Corpuscular Volume 88.6 fL 87.8 fL Mean Corpuscular Hemoglobin 32.3 pg 32.2 pg Mean Corpuscular Hemoglobin Concent 36.5 g/dl 36.7 g/dl Platelet Count 196 K/uL 175 K/uL Mean Platelet Volume 9.5 fL 9.1 fL Neutrophils (%) (Auto) 79.8 % Lymphocytes (%) (Auto) 6.1 % Monocytes (%) (Auto) 13.2 % Eosinophils (%) (Auto) 0.6 % Basophils (%) (Auto) 0.1 % Neutrophils # (Auto) 8.44 K/uL Lymphocytes # (Auto) 0.65 K/uL Monocytes # (Auto) 1.40 K/uL Eosinophils # (Auto) 0.06 K/uL Basophils # (Auto) 0.01 K/uL RDW Standard Deviation 39.4 fL 39.4 fL RDW Coefficient of Variation 12.3 % 12.3 % Immature Granulocyte % (Auto) 0.2 % Immature Granulocyte # (Auto) 0.02 K/uL Sodium Level 123 mmol/L 125 mmol/L Potassium Level 3.2 mmol/L 3.3 mmol/L Chloride Level 83 mmol/L 87 mmol/L Carbon Dioxide Level 30 mmol/L 30 mmol/L Anion Gap 9.0 mmol/L 8.0 mmol/L Blood Urea Nitrogen 15 mg/dl 13 mg/dl Creatinine 0.77 mg/dl 0.77 mg/dl Est Creatinine Clear Calc Drug Dose 85.0 ml/min 85.0 ml/min Estimated GFR () 115.9 115.9 Estimated GFR (Non- 100.0 100.0 BUN/Creatinine Ratio 20.0 17.5 Random Glucose 92 mg/dl 178 mg/dl Calcium Level 8.8 mg/dl 8.2 mg/dl Total Bilirubin 1.0 mg/dl Aspartate Amino Transf (AST/SGOT) 15 U/L Alanine Aminotransferase (ALT/SGPT) 19 U/L Alkaline Phosphatase 172 U/L Troponin I < 0.015 ng/ml < 0.015 ng/ml Total Protein 7.4 gm/dl Albumin 3.4 gm/dl Globulin 4.0 gm/dl Albumin/Globulin Ratio 0.9 Prothrombin Time 11.4 SECONDS Prothromb Time International Ratio 1.1 Venous Blood pH 7.47 Venous Blood Partial Pressure CO2 39 mmHg Venous Blood Partial Pressure O2 53 mmHg Venous Blood HCO3 28 mmol/L Venous Blood Oxygen Saturation 86.8 % Venous Blood Base Excess 3.7 mEq/L Osmolality 257 mOsm/kg Magnesium Level 2.1 mg/dl Total Creatine Kinase 78 U/L Creatine Kinase MB 1.9 ng/ml Creatine Kinase MB Ratio 2.4 Assessment & Plan EXACERBATION OF COPD Presented with cough and worsening dyspnea. Chest x-ray showed emphysematous changes, no infiltrates. Receiving IV steroids, azithromycin, nebs. Transition to oral steroids. HYPOXIA O2 sat in ED 85% on RA. Hypoxia secondary to exacerbation COPD. Titrate supplemental O2. ABNORMAL CT OF CHEST CT demonstrated 3 irregular groundglass lesions in the upper lobes, measuring up to 13 mm. Follow-up recommended. Pulmonary Medicine consulted. HYPERTENSION Continue metoprolol and amlodipine. Hold HCTZ due to hyponatremia. ANEURYSM THORACIC AORTA Previously noted. Stable at 4.[address] LESIONS NEURAL FORAMINA THORACIC SPINE Noted on CT of chest. Per Radiology: "These are not significantly changed dating back to 2012. Top differential considerations include small pseudomeningoceles, nerve sheath cysts, or nerve sheath tumors such as schwannomas. These are of doubtful significance given long-term stability." WEIGHT LOSS Possibly due to pulmonary cachexia. CT chest as noted above. Check TSH. Assure that routine cancer screening in current. HYPONATREMIA Probably secondary to SIADH and / or HCTZ. Fluid restriction. Follow. VTE PROPHYLAXIS SQ enoxaparin. Ambulate. DISPOSITION Expected discharge to home. Family Medicine follow-up with Dr. Noriega. . Current Inpatient Medications: Current Inpatient Medications Medications (Trade) Dose Ordered Sig/Noe Route Start Time Stop Time Status Last Admin Dose Admin Sodium Chloride 1,000 ml @ 80 mls/hr [id number] IV 01/26/17 21:58 02/25/17 21:57 01/27/17 10:24 80 MLS/HR Acetaminophen (Tylenol Tab) 650 mg Q4H PRN PO 01/26/17 21:00 02/25/17 20:59 Al Hydrox/Mg Hydrox/Simethicone (Maalox Max Susp) 15 ml Q4H PRN PO 01/26/17 21:00 02/25/17 20:59 Magnesium Hydroxide (Milk Of Magnesia Susp) 30 ml Q12H PRN PO 01/26/17 21:00 02/25/17 20:59 Ondansetron HCl (Zofran Inj) 4 mg Q6H PRN IV 01/26/17 21:00 02/25/17 20:59 Duloxetine HCl (Cymbalta Cap) 30 mg QAM PO 01/27/17 09:00 02/26/17 08:59 01/27/17 07:38 30 MG Gabapentin (Neurontin Cap) 400 mg QID PO 01/26/17 21:00 02/25/17 20:59 01/27/17 07:37 400 MG Metoprolol Succinate (Toprol Xl Tab) 12.5 mg QPM PO 01/26/17 21:00 02/25/17 20:59 Potassium Chloride (Klor-Con Tab) 20 meq QAM PO 01/27/17 09:00 02/26/17 08:59 01/27/17 07:38 20 MEQ Amlodipine Besylate (Norvasc Tab) 5 mg QAM PO 01/27/17 09:00 02/26/17 08:59 01/27/17 07:37 5 MG Albuterol/ Ipratropium (Duoneb) 3 ml QIDR INH 01/27/17 08:00 02/26/17 07:59 01/27/17 07:18 3 ML Methylprednisolone Sodium Succinate 40 mg/Syringe 0.64 ml @ 1.5 mls/min Q8H IV 01/27/17 04:00 02/26/17 03:59 01/27/17 04:45 1.5 MLS/MIN Azithromycin (Zithromax Tab) 250 mg QAM PO 01/27/17 09:00 01/30/17 23:59 01/27/17 07:38 250 MG Enoxaparin Sodium (Lovenox Inj) 30 mg Q24H SC 01/27/17 09:00 02/25/17 08:59 01/27/17 07:36 30 MG Enteral Nutritional Formula (Boost Breeze Nutritional Drink) 1 box BIDM PO 01/27/17 08:00 02/26/17 07:59 01/27/17 07:36 1 BOX Ioversol (Optiray 320) 125 ml UD PRN IV 01/27/17 08:45 01/31/17 08:44
[2017-01-27 11:51] LABS: CKMB/CK RATIO 2.9 (0-3.0)
--- NOTE | 2017-01-27 12:37 | Pulmonary Consultation ---
History General Date of Service: Jan 27, 2017. Stated Complaint: Copd With Acute Exacerbation HPI The patient is a 57 year old male who presents to [facility] with complaints of Copd With Acute Exacerbation. The patient's primary care provider is Isaías Noriega M.D.. Mr. Pedraza is a 57-year-old male with past medical history of severe COPD, with current tobacco use, hypertension, vitamin D deficiency and thoracic aortic aneurysm repair presents with several breath associated with cough and dyspnea. He states that symptoms started about 2-3 days prior to admission there was associated with cough and whitish to yellowish productive sputum. He was working up until Thursday, but states he started feel weak about two weeks prior. He denies any fevers, chills, chest pain, palpitations, lightheadedness, dizziness. Denies any nausea, vomiting or diarrhea. He does admit to weight loss recently but is unable to quantify the amount. He has had changes in appetite over the last few weeks. He denies any hemoptysis or night sweats. He denies any lower extremity edema, orthopnea and paroxysmal nocturnal dyspnea. He still is smoking about 4-5 cigarettes a day. He was seen by Dr. Gallegos in the pulmonary clinic last in 2015. PFT in July 2015 showed severe obstructive ventilatory defect. FEV1 is 49% predicted. He he had a significant bronchodilator response. TLC 92% and DLCO was 32%. He is only on albuterol when necessary. Initial vital signs were temperature 37.1, pulse 96, respiratory rate 24, blood pressure 100/76 saturating 85% on room air. He was placed on 2 L nasal cannula with increased SaO2 to 93%. Laboratory data showed white blood cell count of 10, hemoglobin of 14, platelet count of 196. She was significant for sodium of 123, potassium 3.2, chloride 83 , carbon dioxide 30, BUN 15 creatinine 0.77 and glucose of 92. LFTs were within normal limits except for alkaline phosphatase of 172. Troponin 2 were negative. PT 11.4 and INR 1.1. VBG was 7.47/39/53/28/86.8%. EKG showed normal sinus rhythm with a ventricular rate of 88 bpm with biatrial enlargement ; left axis deviation. Chest x-ray consistent with emphysema. No focal infiltrate. There are slight chronic interstitial changes as well as postoperative right shoulder changes consistent with arthroplasty. In the ER he was given Solu-Medrol 125 mg 1 dose, albuterol/ipratropium 12 mm 1 dose, magnesium sulfate 1 g and azithromycin 500 mg. He was admitted for COPD exacerbation. CT chest was done this morning, negative for pulmonary embolism. There were 3 irregular groundglass lesions with central cystic foci in the left upper lobe, the right upper lobe and the right lower lobe. 2 of these measuring at least 1.3 cm and a more prominent from previous CT done in 2016. Advanced emphysema was again seen. Multiple low attenuated lesions seen within the neural foramina that appeared to be stable. Today, patient states that he is feeling much better from when he came to hospital. He would like to go home. Historian: patient Onset: other (several days prior to arrival) Complaint Status: persistent Review of Systems Constitutional: reports: as stated in HPI Eyes: reports: as stated in HPI ENT: reports: as stated in HPI Cardiovascular: reports: as stated in HPI Respiratory: reports: as stated in HPI Gastrointestinal: reports: as stated in HPI Genitourinary - Male: reports: as stated in HPI Musculoskeletal: reports: as stated in HPI Integumentary: reports: as stated in HPI Neurologic: reports: as stated in HPI Psychiatric: reports: as stated in HPI Endocrine: as stated in HPI Hematologic / Lymphatic: as stated in HPI Allergic / Immunologic: as stated in HPI All Other Symptoms All Other Systems: Reviewed and Negative Past Medical History Past Medical History: Severe COPD. Tobacco use disorder. Hypertension. Vitamin D deficiency. Thoracic aortic aneurysm. Past Surgical History: Right shoulder biopsy/arthroplasty Family History Heart disease Lung disease Both parents have history of emphysema. Father smoked for many years. Mother probably has secondary smoke exposures. He denies any lung disease in siblings or children. Social History Current tobacco use 1/2 ppd. He has been smoking about 40 pk year history of smoking. Denies alcohol or illicit use. 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 Hx Tobacco Use In Past Year?: Yes Smoking Status: Current Every Day Smoker Marital status: Housing status: lives with family Occupational Status: employed Immunizations History of Influenza Vaccine: No History of Tetanus Vaccine?: UNSURE History of Pneumococcal: No History of Hepatitis B Vaccine: No History of MDRO History of MDRO: No Allergies Coded Allergies: Penicillins (Verified Allergy, Severe, CONVULSIONS, 12/31/16) Lisinopril (Unverified Adverse Reaction, Unknown, FELT WEIRD, 12/31/16) Current Medications Reported Home Medications Medications Dose Route/Sig Max Daily Dose Days Date Category Dose Instructions Tylenol (Acetaminophen) 500 Mg Tab 1,000 Mg PO Q6H PRN 01/26/17 Reported Klor-Con (Potassium Chloride) 20 Meq Tabcr 20 Meq PO QAM 01/26/17 Reported Duloxetine HCl 30 Mg Cap 30 Mg PO QAM 01/26/17 Reported Metoprolol Succinate ER (Metoprolol Succinate) 25 Mg Tabcr 12.5 Mg PO QPM 01/26/17 Reported Hydrochlorothiazide 25 Mg Tab 25 Mg PO QAM 01/26/17 Reported Amlodipine Besylate 10 Mg Tab 5 Mg PO QAM 01/26/17 Reported Gabapentin 400 Mg Cap 400 Mg PO QID 01/26/17 Reported Prednisone 5 Mg Tab 5 Mg PO UD PRN 03/03/16 Reported STERAPRED 5MG RESCUE PACK Zithromax Z-Tc (Azithromycin) 250 Mg Tab 1 Pkt PO UD PRN 5 03/03/16 Reported RESCUE PACK Physical Physical Exam Vital Signs: Date Time Temp Pulse Resp B/P (MAP) Pulse Ox O2 Delivery O2 Flow Rate FiO2 01/27/17 08:00 Nasal Cannula 2.0 01/27/17 07:51 36.5 69 16 110/73 (85) 87 Room Air 01/27/17 07:18 73 16 90 Nasal Cannula 2.0 01/27/17 05:07 36.4 65 17 103/71 (82) 97 Room Air 01/27/17 04:00 Nasal Cannula 2.0 01/27/17 00:22 36.9 67 16 103/69 (80) 92 Nasal Cannula 2.0 01/27/17 00:00 Nasal Cannula 2.0 01/26/17 22:24 103/72 (82) 01/26/17 21:54 37.0 85 20 99/66 92 Nasal Cannula 2.0 01/26/17 21:14 94 18 96/65 92 Nasal Cannula 2.0 01/26/17 19:55 85 22 143/92 93 Nasal Cannula 2.0 01/26/17 19:22 96 Nasal Cannula 2.0 01/26/17 19:22 96 Nasal Cannula 2.0 01/26/17 18:46 37.1 96 24 100/76 85 Room Air General Appearance: WD/WN, NO APPARENT DISTRESS, cachetic Head: NORMOCEPHALIC, ATRAUMATIC Eyes: PERRLA, NO DISCHARGE, EOMI, SCLERAE NORMAL ENT: NORMAL MOUTH EXAM, NORMAL THROAT EXAM Neck: NORMAL RANGE OF MOTION, NO TENDERNESS, TRACHEA MIDLINE, NO STRIDOR Respiratory: other (decreased breath sounds bilaterally, barrel chest) Cardiovasular: REGULAR RATE/RHYTHM, NORMAL S1S2, NO M/G/R Abdomen: NON TENDER, NORMAL BOWEL SOUNDS, NO REBOUND Back: NORMAL INSPECTION, NO MIDLINE TENDERNESS, NO CVA TENDERNESS Upper Extremities: NO EDEMA, NO DEFORMITY, NORMAL ROM, other (no clubbing, no cyanosis, nailbed changes.) Lower Extremities: NO EDEMA, NO DEFORMITY, NORMAL ROM Pulses: dorsalis pedis (R) (2+), dorsalis pedis (L) (2+) Neuro: ALERT, ORIENTED x 3, NORMAL MOTOR EXAM, NORMAL SENSATION Psychiatric: NORMAL AFFECT, NO SUICIDAL IDEATION, CONTRACTS FOR SAFETY Diagnostics Labs Results Past 24 Hours Test 01/26/17 19:20 01/26/17 22:19 01/27/17 02:23 01/27/17 10:49 Range/Units White Blood Count 10.58 9.18 4.8-10.8 K/uL Red Blood Count 4.55 4.25 4.7-6.1 M/uL Hemoglobin 14.7 13.7 14.0-18.0 g/dL Hematocrit 40.3 37.3 42-52 % Mean Corpuscular Volume 88.6 87.8 80-100 fL Mean Corpuscular Hemoglobin 32.3 32.2 25-34 pg Mean Corpuscular Hemoglobin Concent 36.5 36.7 32-36 g/dl Platelet Count 196 175 130-400 K/uL Mean Platelet Volume 9.5 9.1 7.4-10.4 fL Neutrophils (%) (Auto) 79.8 % Lymphocytes (%) (Auto) 6.1 % Monocytes (%) (Auto) 13.2 % Eosinophils (%) (Auto) 0.6 % Basophils (%) (Auto) 0.1 % Neutrophils # (Auto) 8.44 1.4-6.5 K/uL Lymphocytes # (Auto) 0.65 1.2-3.4 K/uL Monocytes # (Auto) 1.40 0.11-0.59 K/uL Eosinophils # (Auto) 0.06 0-0.5 K/uL Basophils # (Auto) 0.01 0-0.2 K/uL RDW Standard Deviation 39.4 39.4 36.4-46.3 fL RDW Coefficient of Variation 12.3 12.3 11.5-14.5 % Immature Granulocyte % (Auto) 0.2 % Immature Granulocyte # (Auto) 0.02 0.00-0.02 K/uL Sodium Level 123 125 136-145 mmol/L Potassium Level 3.2 3.3 3.5-5.1 mmol/L Chloride Level 83 87 98-107 mmol/L Carbon Dioxide Level 30 30 21-32 mmol/L Anion Gap 9.0 8.0 3-11 mmol/L Blood Urea Nitrogen 15 13 7-18 mg/dl Creatinine 0.77 0.77 0.60-1.40 mg/dl Est Creatinine Clear Calc Drug Dose 85.0 85.0 ml/min Estimated GFR () 115.9 115.9 Estimated GFR (Non- 100.0 100.0 BUN/Creatinine Ratio 20.0 17.5 10-20 Random Glucose 92 178 70-99 mg/dl Calcium Level 8.8 8.2 8.5-10.1 mg/dl Total Bilirubin 1.0 0.2-1 mg/dl Aspartate Amino Transf (AST/SGOT) 15 15-37 U/L Alanine Aminotransferase (ALT/SGPT) 19 12-78 U/L Alkaline Phosphatase 172 45-117 U/L Troponin I < 0.015 < 0.015 0-0.045 ng/ml Total Protein 7.4 6.4-8.2 gm/dl Albumin 3.4 3.4-5.0 gm/dl Globulin 4.0 2.5-4.0 gm/dl Albumin/Globulin Ratio 0.9 0.9-2 Prothrombin Time 11.4 9.0-12.0 SECONDS Prothromb Time International Ratio 1.1 0.9-1.1 Venous Blood pH 7.47 7.36-7.41 Venous Blood Partial Pressure CO2 39 38.0-50.0 mmHg Venous Blood Partial Pressure O2 53 mmHg Venous Blood HCO3 28 mmol/L Venous Blood Oxygen Saturation 86.8 % Venous Blood Base Excess 3.7 mEq/L Osmolality 257 280-300 mOsm/kg Magnesium Level 2.1 1.8-2.4 mg/dl Total Creatine Kinase 78 39-308 U/L Creatine Kinase MB 1.9 0.5-3.6 ng/ml Creatine Kinase MB Ratio 2.4 0-3.[address] SCAN OF THE CHEST WITH IV CONTRAST CLINICAL HISTORY: Weight loss. COPD exacerbation. COMPARISON STUDY: Chest x-ray dated 01/26/2017. Chest CT scans dated 05/21/2015 and 02/01/2013. TECHNIQUE: Following the IV administration of 119 cc of Optiray 320, CT scan of the thorax was performed from the thoracic inlet to the upper abdomen. Images are reviewed in the axial, sagittal, and coronal planes. IV contrast was administered without complication. A dose lowering technique was utilized adhering to the principles of ALARA. CT DOSE: 237.83 mGy.cm FINDINGS: Thyroid: Imaged portions of the thyroid gland are normal in size and attenuation. Thoracic aorta: There is mild atherosclerotic calcification of the thoracic aorta. There is mild aneurysmal dilatation of the ascending thoracic aorta which measures up to 4.3 cm. The remainder of the thoracic aorta is normal in caliber, and the arch demonstrates standard 3-vessel anatomy. No dissection is seen. Pulmonary vasculature: The pulmonary trunk is normal in caliber. There are no filling defects identified in the central pulmonary vessels to indicate pulmonary embolus. Note that this examination was not protocoled for evaluation of the pulmonary arteries. Heart: The heart is normal in size and configuration, and without pericardial effusion. The coronary arteries are densely calcified. Lungs and pleural spaces: Advanced emphysema is identified with biapical bullous change. Secretions are noted in the trachea. Mucous plugging/secretions are present within the lower lobe airways bilaterally. There is no airspace consolidation or pleural effusion. A small fat-containing Bochdalek hernia is seen at the right lung base. Diffuse peribronchial thickening is identified. There is an irregular groundglass lesion in the left upper lobe seen on image #144 and measuring 1.3 cm. This contains tiny central cystic spaces, end is significantly more apparent than on the 2016 examination. A similar-appearing lesion in the right lower lobe as seen on image #183 and measures up to 0.9 cm. This is also increasingly conspicuous from previous. A similar-appearing lesion in the right upper lobe as seen on image #146 and measures up to 1.3 cm. This is new from previous. Mediastinum: There is no mediastinal lymphadenopathy. Jael: Clear. Axillae: There is no axillary lymphadenopathy. Upper abdomen: Partially visualized upper abdominal viscera is within normal limits. Skeletal structures: Mild degenerative change and hyperkyphosis are noted in the thoracic spine. A hemangioma is noted in the body of L3. No lytic or blastic bony lesions are seen. There are ovoid low-attenuation lesions present within the right neural foramina at T8-T9, T9-T10, T10-T11, and T11-T12. Similar appearing low-attenuation lesion is seen on the left at T9-T10, T10-T11, and T11-T12. These are unchanged from prior examinations. A right shoulder arthroplasty is in place. Soft tissues: The patient is cachectic. IMPRESSION: 1. Advanced emphysema. 2. There is no lobar consolidation or pleural effusion. Mild diffuse peribronchial thickening suggests reactive airway disease. Clinical correlation will be required. 3. There are 3 irregular groundglass lesions with central cystic foci identified in the left upper lobe, the right upper lobe, and the right lower lobe. These measure up to 1.3 cm, and at least 2 of these are significantly more conspicuous than on the 2016 examination. Although these could be on an infectious/inflammatory basis, neoplasm is the diagnosis of exclusion. A follow-up chest CT in 1-2 months time is recommended for reassessment. 4. Again seen is aneurysmal dilatation of the ascending thoracic aorta which measures up to 4.3 cm. 5. There are numerous low-attenuation lesions identified within the neural foramina of the thoracic spine as above. These are not significantly changed dating back to 2013. Top differential considerations include small pseudomeningoceles, nerve sheath cysts, or nerve sheath tumors such as schwannomas. These are of doubtful significance given long-term stability. 6. Additional findings as above. Impression Assessment and Plan Severe COPD with exacerbation Multiple groundglass pulmonary nodules Tobacco use disorder Electrolyte abnormalities Hypertension Thoracic aortic aneurysm Mr. Pedraza is a 57-year-old male with history of severe COPD with FEV1 of 49%. He is currently on albuterol for rescue inhaler and not on any maintenance therapy. He is a current tobacco user of about 4-5 cigarettes per day and has long history of smoking. CT done this morning shows multiple groundglass pulmonary nodules 2 of which measure about 1.3 cm in size. With his tobacco use history this is concerning for malignancy. Cachexia is concerning but it can be secondary to underlying COPD as it is a catabolic state, as well. Recommendations At the current time I'll continue to treat for COPD exacerbation. Continue with supplemental oxygenation to maintain SaO2 above 92%. Continue with Solu- Medrol IV 40 mg every 8 hours. He probably switched over to prednisone 40 mg tomorrow. Taper over the next 14 days. Continue with azithromycin 250 mg daily for a total of 5 days of antibiotics. Continue to use albuterol/ipratropium nebulizer every 4-6 hours when necessary. He should be started on Spiriva 18 g 1 puff daily as well as an inhaled corticosteroid/LABA combination, Symbicort 180/4.5 2 puffs twice a day. He should follow-up with pulmonary within 1-2 weeks posthospital discharge, for PFT as well as repeat CT of chest to evaluate for interval resolution of pulmonary nodules. Otherwise tissue biopsy is indicated. Smoking cessation counseling given. Nicotine patch offered, however he declined. Will send alpha 1 antitrypsin to rule out deficiency as both parents have history of emphysema Electrolyte abnormalities most likely secondary to diuretic use for hypertension. However I'll leave this management to care of primary team. I appreciate the consult. Please contact me if you've any further questions or concerns.
[2017-01-27] MEDS: BOOST VANILLA PUDDING CUP PO SCH (16:53)
[2017-01-27] MEDS: BUDESONIDE/FORMOTEROL FUMARATE 160/4.5 60 PUFFS/INHALER INH SCH (20:31)
[2017-01-27] MEDS: POTASSIUM CHLORIDE 20 MEQ TABCR PO SCH (20:32)
[2017-01-27] MEDS: METOPROLOL SUCC 25MG EXT REL TAB PO SCH (20:33)
[2017-01-27 21:31] LABS: URINE APPEARANCE CLEAR (CLEAR); URINE BILIRUBIN NEG (NEG); URINE COLOR YELLOW; URINE NITRITE NEG (NEG); URINE PH 6.5 (4.5-7.5); UROBILINOGEN NEG (NEG)
[2017-01-27 21:34] LABS: MANUAL MICROSCOPIC REQUIRED? NO; REVIEW REQ? NO
[2017-01-28 04:20] VITALS: BP 109/64; PULSE 60; TEMP 36.4; O2SAT 96
[2017-01-28 06:23] LABS: BLOOD UREA NITROGEN 17 mg/dl (7-18); BUN/CREATININE RATIO 25.4 (10-20); CALCIUM 7.6 mg/dl (8.5-10.1); CARBON DIOXIDE 24 mmol/L (21-32); CHLORIDE 96 mmol/L (98-107); CREATININE 0.65 mg/dl (0.60-1.40); GLUCOSE 141 mg/dl (70-99); POTASSIUM 3.5 mmol/L (3.5-5.1); SODIUM 130 mmol/L (136-145)
[2017-01-28 06:28] LABS: CKMB/CK RATIO 3.8 (0-3.0)
[2017-01-28 07:25] VITALS: BP 108/73; PULSE 62; TEMP 36.6; O2SAT 93
[2017-01-28] MEDS: ALBUT/IPRATROP 3MG/0.5MG NEB 3 ML VIAL INH SCH (07:25)
[2017-01-28 07:27] VITALS: PULSE 62; O2SAT 93
[2017-01-28] MEDS: BOOST VANILLA PUDDING CUP PO SCH ×2 (07:27→11:14)
[2017-01-28] MEDS: BUDESONIDE/FORMOTEROL FUMARATE 160/4.5 60 PUFFS/INHALER INH SCH (07:30)
[2017-01-28] MEDS: POTASSIUM CHLORIDE 20 MEQ TABCR PO SCH (07:30)
[2017-01-28] MEDS: AMLODIPINE BESYLATE 5 MG TAB PO SCH (07:30)
[2017-01-28] MEDS: GABAPENTIN 400 MG CAP PO SCH ×2 (07:30→13:06)
[2017-01-28] MEDS: DULOXETINE (CYMBALTA) 30 MG CAP PO SCH (07:30)
[2017-01-28] MEDS: ENOXAPARIN 30 MG/0.3 ML SYR SC SCH (07:31)
[2017-01-28] MEDS: AZITHROMYCIN 250 MG TAB PO SCH (07:31)
[2017-01-28] MEDS ORDERED: ALBUTEROL HFA 8 GM INHALER INH PRN (08:45)
[2017-01-28] MEDS ORDERED: TIOTROPIUM BROMIDE 5 PUFF/90 MCG INH INH SCH (09:00)
[2017-01-28 11:15] VITALS: BP 102/66; PULSE 66; TEMP 36.6; O2SAT 91
[2017-01-28] MEDS ORDERED: SYMIN INH (15:40)
[2017-01-28] MEDS ORDERED: PRVHFAIN INH (15:40)
[2017-01-28] MEDS ORDERED: SPRIN INH (15:40)
[2017-01-28] MEDS ORDERED: AZIT-57 PO (15:40)
[2017-01-28] MEDS ORDERED: PRD10 PO (15:40)
[2017-01-28 16:00] VITALS: O2SAT 95
--- NOTE | 2017-01-28 16:08 | Discharge Instructions ---
Discharge Instructions Date of Service Jan 28, 2017. Admission Reason for Admission: cough, trouble breathing . Discharge Discharge Diagnosis / Problem: worsening COPD, bronchitis Discharge Goals Goal(s): Improve function, Improve disease control Activity Recommendations Activity Limitations: as noted below Lifting Limitations: gradually increase as tolerated . Instructions / Follow-Up Instructions / Follow-Up APPOINTMENTS: [facility] 01/31/2017 8:20 AM YUE Rahman [facility] FAMILY MEDICINE 02/17/2017 10:00 AM Isaías Noriega MD PULMONARY MEDICINE Please ask Dr. Noriega to make referral. OTHER INSTRUCTIONS: Take azithromycin (Zithromax) 250 mg daily for 5 days for bronchitis. Take prednisone taper as directed: 4 pills (40 mg) for 2 days 3 pills (30 mg) for 2 days 2 pills (20 mg) for 2 days 1 + 1/2 pills (15 mg) for 2 days 1 pill (10 mg) for 2 days 1/2 pill ( 5 mg) for 2 days then stop Your sodium and potassium levels were low. Stop taking hydrochlorothiazide. Please ask Dr. Noriega to check labs (basic metabolic profile) when you see him. Drinking too much fluid can lower your sodium level. Try to limit your fluid intake to about 6 cups a day. It is important that you quit smoking. Please ask Dr. Noriega for a referral to see Pulmonary Medicine for follow-up of your COPD and abnormal CT scan. Your thyroid level may be high and could be a factor with your weight loss. Please ask Dr. Noriega to repeat thyroid tests when you see him. CT scan of chest showed small spots near the spine. These have been stable since 2013 and are probably benign. Seek medical evaluation / consultation if you develop back pain or weakness in your legs. Seek medical attention if you have: * temperature above 101 * chest pain or trouble breathing * abdominal pain, nausea, vomiting * diarrhea, dark stools or bloody stools * any unanswered questions or concerns Call 911 if symptoms are severe. Call if you have any questions or problems. My cell # is [phone]. You can also reach a [facility] hospitalist on duty at [facility] 24 hours a day by calling [phone]. Please take good care of yourself. Gustavo Mcmanus . Current Hospital Diet Patient's current hospital diet: Regular Diet Discharge Diet Recommended Diet: AHA Diet (Heart Healthy) Fluid Restriction: 1500 ml (6 cups) Procedures Procedures Performed: CT scan showed: advanced emphysema (COPD) spots in the upper lungs aneurysm of aorta in chest measures 4.3 cm (stable) small spots along spine (stable since 2012) Pending Studies Studies pending at discharge: yes List of pending studies: alpha-1 antitrypsin level . Medical Emergencies . Who to Call and When: Medical Emergencies: If at any time you feel your situation is an emergency, please call 911 immediately. . Non-Emergent Contact Non-Emergency issues call your: Primary Care Provider, Hospital Doctor . . "Provider Documentation" section prepared by Gustavo Mcmanus. . VTE Core Measure Inpt VTE Proph given/why not?: Enoxaparin (Lovenox)SQ
[2017-01-28 16:37] VITALS: BP 102/66; PULSE 66; TEMP 36.6; O2SAT 91
--- NOTE | 2017-01-28 17:31 | Progress Note ---
Medicine Progress Note Date & Time of Visit: Jan 28, 2017 at 17:30 . Subjective Significantly better. Cough and dyspnea improved. Ambulating. No nausea, vomiting, diarrhea. Would like to be discharged. . Objective Last 8 Hrs Date Time Temp Pulse Resp B/P (MAP) Pulse Ox O2 Delivery O2 Flow Rate FiO2 01/28/17 16:37 36.6 66 18 91 Room Air 01/28/17 16:00 95 Room Air 01/28/17 12:30 Nasal Cannula 2.0 01/28/17 11:15 36.6 66 18 102/66 (78) 91 Nasal Cannula 3.0 Physical Exam: General- no distress Lungs- diffuse mild wheezing, few scattered rhonchi Heart- RRR, no murmur or gallop appreciated Abdomen- + BS, soft, nontender Extremities- no pretibial edema or calf tenderness Neuro- alert, oriented Skin- warm and dry . Laboratory Results: Last 24 Hours Test 01/28/17 05:23 01/28/17 05:27 Creatine Kinase MB Ratio 3.8 Sodium Level 130 mmol/L Potassium Level 3.5 mmol/L Chloride Level 96 mmol/L Carbon Dioxide Level 24 mmol/L Anion Gap 10.0 mmol/L Blood Urea Nitrogen 17 mg/dl Creatinine 0.65 mg/dl Est Creatinine Clear Calc Drug Dose 101.3 ml/min Estimated GFR () 124.3 Estimated GFR (Non- 107.2 BUN/Creatinine Ratio 25.4 Random Glucose 141 mg/dl Calcium Level 7.6 mg/dl Total Creatine Kinase 77 U/L Creatine Kinase MB 2.9 ng/ml Troponin I < 0.015 ng/ml Thyroid Stimulating Hormone (TSH) 0.132 uIu/ml Assessment & Plan EXACERBATION OF COPD Presented with cough and worsening dyspnea. Chest x-ray showed emphysematous changes, no infiltrates. Received IV steroids, azithromycin, nebs with improved. Pulmonary Medicine consulted. Transitioned to oral steroids; discharge on taper. Discharge on azithromycin. Symbicort, Spiriva, albuterol HFA rescue. Outpatient PFT's after recovery from current exacerbation. HYPOXIA O2 sat in ED 85% on RA in ED. Hypoxia secondary to exacerbation COPD. Received supplemental O2. 2-step pulse oximetry day of discharge demonstrated adequate oxygenation on RA at rest and with activity (lowest O2 sat 90% with exercise). ABNORMAL CT OF CHEST CT demonstrated 3 irregular groundglass lesions in the upper lobes, measuring up to 13 mm. Pulmonary Medicine consulted. Outpatient follow-up recommended. HYPERTENSION Continue metoprolol and amlodipine. Stopped HCTZ due to hyponatremia. ANEURYSM THORACIC AORTA Previously noted. Stable at 4.[address] LESIONS NEURAL FORAMINA THORACIC SPINE Noted on CT of chest. Per Radiology: "These are not significantly changed dating back to 2013. Top differential considerations include small pseudomeningoceles, nerve sheath cysts, or nerve sheath tumors such as schwannomas. These are of doubtful significance given long-term stability." Discussed with patient. Clinical implications uncertain. Outpatient Neurosurgery consultation may be prudent. WEIGHT LOSS Possibly due to pulmonary cachexia. CT chest as noted above. TSH low (0.132). Recheck TFT's as outpt after recovery from current illness. Assure that routine cancer screening in current. HYPONATREMIA Sodium 123 at time of admission. Hyponatremia probably secondary to SIADH and / or HCTZ. HCTZ stopped. Fluid restriction. Na day of discharge = 130. Follow. VTE PROPHYLAXIS SQ enoxaparin. Ambulating. DISPOSITION Discharge to home. Family Medicine follow-up with Dr. Noriega. Pulmonary Medicine [place] [facility]. Physiatry follow-up with Dr. Yee. .
--- NOTE | 2017-01-29 09:58 | Discharge Summary ---
Discharge Summary Date of Service Jan 29, 2017. Discharge Summary Admission Date: Jan 26, 2017 at 20:55 Discharge Date: Jan 28, 2017 Discharge Disposition: Home Principal Diagnosis: exacerbation of COPD due to bronchitis OTHER ACUTE DIAGNOSES: hypoxia hyponatremia hypokalemia abnormal CT chest weight loss abnormal TFT's (TSH low) . Secondary Diagnoses/Problems: Chronic and Resolved Medical Problems: (1) Abnormal CT of spine Permanent Comment: numerous lesions within neural foramina thoracic spine multiple levels noted on CT of chest 01/27/17 Status: Chronic (2) Abnormal CT of the chest Permanent Comment: groundglass lesions bilat upper lobes per CT 01/27/17 Status: Chronic (3) Aortic aneurysm Permanent Comment: aneurysmal dilatation thoracic aorta, 4.[address] 01/27/17 Status: Chronic (4) Chronic pain Status: Chronic (5) COPD (chronic obstructive pulmonary disease) Status: Chronic (8) Hypertension Status: Chronic (9) Smoking Status: Chronic Surgical Problems: (1) History of right shoulder replacement Status: Chronic . Procedures: CT chest IV meds . Consultations: Pulmonary Medicine . Pending Studies/Follow-Up: Please check basic metabolic profile, TSH, free T3, free T4 in clinic. Please make referral for follow-up with Pulmonary Medicine re: COPD, abnormal CT chest. Please consider referral to Neurosurgery re: abnormal CT of thoracic spine. . Medication Reconciliation New Medications: Azithromycin (Azithromycin) 250 Mg Tab 250 MG PO DAILY, #5 TAB Prednisone (Prednisone) 10 Mg Tab 0 PO UD, #24 TAB 40 mg daily, then taper as directed Albuterol (Ventolin Hfa) 60 Puffs/5400 Mcg Aers 2 PUFFS INH Q6H PRN for wheezing, #1 INHALER 5 Refills Budesonide/Formoterol Fumarate (Symbicort 160-4.5 Mcg/Act) 60 Puffs/Inhaler Aero 2 PUFFS INH BID, #1 INHA 5 Refills Tiotropium [place] (Spiriva Handihaler) 5 Puff/90 Mcg Aerp 1 PUFF INH QAM, #1 INHA 5 Refills Continued Medications: Acetaminophen (Tylenol) 500 Mg Tab 1000 MG PO Q6H PRN for Pain, TAB Amlodipine Besylate (Amlodipine Besylate) 10 Mg Tab 5 MG PO QAM Azithromycin (Zithromax Z-Tc) 250 Mg Tab 1 PKT PO UD PRN for Rescue for 5 Days, #6 TAB RESCUE PACK Duloxetine HCl (Duloxetine HCl) 30 Mg Cap 30 MG PO QAM Gabapentin (Gabapentin) 400 Mg Cap 400 MG PO QID Metoprolol Succinate (Metoprolol Succinate ER) 25 Mg Tabcr 12.5 MG PO QPM Potassium Ext Rel (Klor-Con) 20 Meq Tabcr 20 MEQ PO QAM Prednisone (Prednisone) 5 Mg Tab 5 MG PO UD PRN for Rescue, #1 PKT STERAPRED 5MG RESCUE PACK Discontinued Medications: Hydrochlorothiazide (Hydrochlorothiazide) 25 Mg Tab 25 MG PO QAM Admission Information HPI (per Admitting provider): This is a 57 year old male with a PMH of severe COPD, ongoing tobacco use disorder, weight loss, HTN, dilatation of thoracic aorta, chronic shoulder arthralgia - presents with worsening shortness of breath - states he could not get a deep breath in; could not move around due to worsening shortness of breath - also had a cough and sputum production. This has been ongoing for around 3 days. He asked his PCP for a script for a rescue kit, which includes a prednisone taper and a Z-tc - he did not receive this in time as his breathing became worse and he had to come to the ER. Upon presentation, he had a CXR suggesting emphysematous changes. He received solu-medrol in the ED and he felt better. States he still smokes about 4-5 cigarettes daily. He states he has lost an unknown amount of weight in the past year and cannot put it back on. Denies fevers/chills, denies chest pain/palpitations, no nausea/vomiting/ diarrhea. . Physical Exam (per Admitting): General Appearance: + mild distress (secondary to shortness of breath; supplemental O2 via NC), + cachetic, + thin Head: normocephalic, atraumatic Eyes: normal inspection ENT: hearing grossly normal Neck: supple Respiratory/Chest: no respiratory distress, no accessory muscle use, + decreased breath sounds, + wheezing, + pertinent finding (chset tightness with decreased aeration throughout the lung zamora bilaterally) Cardiovascular: regular rate, rhythm, no edema, no gallop, no JVD, no murmur , normal peripheral pulses Abdomen/GI: normal bowel sounds, non tender, soft Extremities/Musculoskelatal: normal capillary refill, no pedal edema Neurologic/Psych: no motor/sensory deficits, alert, normal mood/affect Skin: normal color Lymphatic: no adenopathy Hospital Course EXACERBATION OF COPD Presented with cough and worsening dyspnea. Chest x-ray showed emphysematous changes, no infiltrates. Received IV steroids, azithromycin, nebs with improved. Pulmonary Medicine consulted. Transitioned to oral steroids; discharge on taper. Discharge on azithromycin. Symbicort, Spiriva, albuterol HFA rescue. Outpatient PFT's after recovery from current exacerbation. HYPOXIA O2 sat in ED 85% on RA in ED. Hypoxia secondary to exacerbation COPD. Received supplemental O2. 2-step pulse oximetry day of discharge demonstrated adequate oxygenation on RA at rest and with activity (lowest O2 sat 90% with exercise). ABNORMAL CT OF CHEST CT demonstrated 3 irregular groundglass lesions in the upper lobes, measuring up to 13 mm. Pulmonary Medicine consulted. Outpatient follow-up recommended. HYPERTENSION Continue metoprolol and amlodipine. Stopped HCTZ due to hyponatremia. ANEURYSM THORACIC AORTA Previously noted. Stable at 4.[address] LESIONS NEURAL FORAMINA THORACIC SPINE Noted on CT of chest. Per Radiology: "These are not significantly changed dating back to 2013. Top differential considerations include small pseudomeningoceles, nerve sheath cysts, or nerve sheath tumors such as schwannomas. These are of doubtful significance given long-term stability." Discussed with patient. Clinical implications uncertain. Outpatient Neurosurgery consultation may be prudent. WEIGHT LOSS 6 lb weight loss over past 12 months per clinic records. BMI 16. Wt loss possibly due to pulmonary cachexia. CT chest as noted above. TSH low (0.132). Recheck TFT's as outpt after recovery from current illness. Assure that routine cancer screening in current. HYPONATREMIA Sodium 123 at time of admission. Hyponatremia probably secondary to SIADH and / or HCTZ. HCTZ stopped. Fluid restriction. Na day of discharge = 130. Follow. VTE PROPHYLAXIS SQ enoxaparin. Ambulating. DISPOSITION Discharge to home. Family Medicine follow-up with Dr. Noriega. Pulmonary Medicine follow-up with [facility]. Physiatry follow-up with Dr. Yee. . Total time spent on discharge = 40 minutes. This includes examination of the patient, discharge planning, medication reconciliation, and communication with other providers. . Discharge Instructions Date of Service Jan 28, 2017. Admission Reason for Admission: cough, trouble breathing . Discharge Discharge Diagnosis / Problem: worsening COPD, bronchitis Discharge Goals Goal(s): Improve function, Improve disease control Activity Recommendations Activity Limitations: as noted below Lifting Limitations: gradually increase as tolerated . Instructions / Follow-Up Instructions / Follow-Up APPOINTMENTS: [facility] 01/31/2017 8:20 AM YUE Rahman [facility] FAM[facility] MEDICINE 02/17/2017 10:00 AM Isaías Noriega MD PULMONARY MEDICINE Please ask Dr. Noriega to make referral. OTHER INSTRUCTIONS: Take azithromycin (Zithromax) 250 mg daily for 5 days for bronchitis. Take prednisone taper as directed: 4 pills (40 mg) for 2 days 3 pills (30 mg) for 2 days 2 pills (20 mg) for 2 days 1 + 1/2 pills (15 mg) for 2 days 1 pill (10 mg) for 2 days 1/2 pill ( 5 mg) for 2 days then stop Your sodium and potassium levels were low. Stop taking hydrochlorothiazide. Please ask Dr. Noriega to check labs (basic metabolic profile) when you see him. Drinking too much fluid can lower your sodium level. Try to limit your fluid intake to about 6 cups a day. It is important that you quit smoking. Please ask Dr. Noriega for a referral to see Pulmonary Medicine for follow-up of your COPD and abnormal CT scan. Your thyroid level may be high and could be a factor with your weight loss. Please ask Dr. Noriega to repeat thyroid tests when you see him. CT scan of chest showed small spots near the spine. These have been stable since 2013 and are probably benign. Seek medical evaluation / consultation if you develop back pain or weakness in your legs. Seek medical attention if you have: * temperature above 101 * chest pain or trouble breathing * abdominal pain, nausea, vomiting * diarrhea, dark stools or bloody stools * any unanswered questions or concerns Call 911 if symptoms are severe. Call if you have any questions or problems. My cell # is [phone]. You can also reach a [facility] hospitalist on duty at [facility] 24 hours a day by calling [phone]. Please take good care of yourself. Gustavo Mcmanus . Current Hospital Diet Patient's current hospital diet: Regular Diet Discharge Diet Recommended Diet: AHA Diet (Heart Healthy) Fluid Restriction: 1500 ml (6 cups) Procedures Procedures Performed: CT scan showed: advanced emphysema (COPD) spots in the upper lungs aneurysm of aorta in chest measures 4.3 cm (stable) small spots along spine (stable since 2012) Pending Studies Studies pending at discharge: yes List of pending studies: alpha-1 antitrypsin level . Medical Emergencies . Who to Call and When: Medical Emergencies: If at any time you feel your situation is an emergency, please call 911 immediately. . Non-Emergent Contact Non-Emergency issues call your: Primary Care Provider, Hospital Doctor . . "Provider Documentation" section prepared by Gustavo Mcmanus. . VTE Core Measure Inpt VTE Proph given/why not?: Enoxaparin (Lovenox)SQ . Additional Copies To Aaron Yee M.D.; Isaías Noriega M.D.
== END 2017-01-28 17:14 | disposition home or self-care (01) | DRG 191 ==
LOC: C.EDB 18:44 → C.MED 20:55 → ENRESERV 21:05
PROVIDERS: ADMIT Family Medicine; ATTEND Hospitalist
DX: J44.1 Chronic obstructive pulmonary disease with (acute) exacerbation (principal); E87.1 Hypo-osmolality and hyponatremia; I77.810 Thoracic aortic ectasia; I10 Essential (primary) hypertension; I25.2 Old myocardial infarction; Z96.611 Presence of right artificial shoulder joint; F17.210 Nicotine dependence, cigarettes, uncomplicated; Z88.0 Allergy status to penicillin; R93.8 Abnormal findings on diagnostic imaging of other specified body structures; R09.02 Hypoxemia

== ENCOUNTER → 2017-04-20 | Outpatient (CLI) | payer BC, OTHER ==
[~2017-04-20] MED LIST changes: +ACET-1256 PO; -AMLO10TA4 PO; +AZIT-57 PO; -CYM/30 PO; +CYM30 PO; -GABA400C PO; -HYDR25TA4 PO; -METO25TA3 PO; +NRN400 PO; +NRV/10 PO; -POTA20TA13 PO; +POTA20TA16 PO; +PRD10 PO; +PRVHFAIN INH; +SPRIN INH; +SYMIN INH; +TPRSR/25 PO
== END | disposition home or self-care (01) ==
LOC: C.RDSM 07:50
PROVIDERS: ATTEND Physical Medicine & Rehabilitation Sports Medicine
DX: M19.011 Primary osteoarthritis, right shoulder (principal)

== ENCOUNTER 2019-05-03 10:05 | Observation (INO) ==
[2019-04-13 15:40] LABS: Basophils # (auto) 0.04 K/uL (0-0.2); Basophils % (auto) 0.7 %; Eosinophils # (auto) 0.28 K/uL (0-0.5); Eosinophils % (auto) 5.2 %; Hematocrit (blood only) 36.6 % (42-52); Hemoglobin 12.7 g/dL (14.0-18.0); Lymphocytes # (auto) 1.25 K/uL (1.2-3.4); Lymphocytes % (auto) 23.1 %; Mean Corpuscular Hemoglobin 31.5 pg (25-34); Mean Corpuscular Hgb Conc 34.7 g/dL (32-36); Mean Corpuscular Volume 90.8 fL (80-100); Monocytes # (auto) 0.56 K/uL (0.11-0.59); Monocytes % (auto) 10.3 %; Neutrophils # (auto) 3.29 K/uL (1.4-6.5); Neutrophils % (auto) 60.7 %; Platelet Count 238 K/uL (130-400); RDW Standard Deviation 43.4 fL (36.4-46.3); Red Blood Count 4.03 M/uL (4.7-6.1); White Blood Count 5.42 K/uL (4.8-10.8)
[2019-04-13 16:08] LABS: BUN Creatinine Ratio 13.1 (10-20); Blood Urea Nitrogen 14 mg/dl (7-18); Calcium 8.2 mg/dl (8.5-10.1); Carbon Dioxide 27 mmol/L (21-32); Chloride 106 mmol/L (98-107); Est GFR (Non-African American) 74.2; Glucose 98 mg/dl (70-99); Potassium 3.8 mmol/L (3.5-5.1); Sodium 138 mmol/L (136-145)
--- NOTE | 2019-04-18 11:12 | Anesthesiology Consultation ---
Date of Service April 18, 2019 Assessment & Plan (1) Encounter for pre-operative examination: Chart Review Chart Review: Pending: Refer to Additional Notes / Consult section and Patient NOT seen in Pre Admission Testing Consults Requested cardiac Patient seen by pulmonary medicine 11/02/2018 and being followed for severe COPD (patient admitted 2018 for COPD exacerbation and required intubation). Per pulmonary, patient is supposed to follow up in 6 months for pulmonary function testing. PATIENT HAS KNOWN AND LARGE THORACIC ANEURYSM. HE FOLLOWS WITH CARDIOLOGY AND POSSIBLY VASCULAR SURGERY SO I WOULD LIKE TO SEE THEIR RECENT NOTES REGARDING MANAGEMENT OF THE ANEURYSM. DEPENDING ON WHETHER OR NOT THIS PATIENT HAS HAD A RECENT VISIT, HE WILL LIKELY NEED A CARDIAC CLEARANCE AND VASCULAR SURGERY INPUT PRIOR TO UNDERGOING ELECTIVE SURGERY. Teaching & Discussion History Surgery Operation Date: 05/03/19 07:00 Proposed Procedures p Right Shoulder Latissmus versus Pectoralis Major Transfer with Capsular Augmentation with Achilles Allograft, Possible Humeral Head Exchange - Jl Damon MD Operation Date: 05/03/19 07:00 Proposed Procedures p Right Shoulder Latissimus versus Pect Major Transfer with Capsular Augmentation with Achilles Allograft, Possible Humeral Head Exchange(Right) - Jl Damon MD s as above(Right) - Jl Damon MD Height/Weight Height: 6 ft 3 in Weight: 61.235 kg Allergies Allergy/AdvReac Type Severity Reaction Status Date / Time Penicillins Allergy Severe CONVULSIONS Verified 04/08/19 13:04 lisinopril AdvReac Mild FELT WEIRD Verified 04/08/19 13:04 Medications Home Medications Medication Instructions Recorded Confirmed Last Taken acetaminophen [Tylenol Extra 1,000 mg PO Q4 PRN 12/04/17 04/08/19 Unknown Strength] amlodipine 5 mg PO QAM 12/04/17 04/08/19 12/03/17 duloxetine 30 mg PO QAM 12/04/17 04/08/19 12/03/17 gabapentin 400 mg PO QID 12/04/17 04/08/19 12/03/17 ibuprofen [Advil] 400 - 600 mg PO QID PRN 12/04/17 04/08/19 Unknown metoprolol succinate 12.5 mg PO QAM 12/04/17 04/08/19 12/03/17 oxycodone-acetaminophen [Percocet] 1 tab PO DAILY PRN 0904/08/19 12/03/17 potassium chloride 20 meq PO QAM 12/04/17 04/08/19 12/03/17 aspirin [Aspirin Low Dose] 81 mg PO QAM 04/08/19 04/08/19 Unknown azithromycin [Zithromax Z-Tc] 250 mg PO UD PRN 04/08/19 04/08/19 Unknown sfjalxnsqer-[id number]-[id number] 1 puffs INH QAM 04/08/19 04/08/19 Unknown [Trelegy Ellipta] nabumetone 750 mg PO BID 04/08/19 04/08/19 Unknown prednisone 10 mg PO UD PRN 04/08/19 04/08/19 Unknown Past Medical History Medical History Abnormal CT of spine (Chronic) "numerous lesions within neural foramina thoracic spine multiple levels noted on CT of chest 01/27/17" Abnormal CT of the chest (Chronic) "groundglass lesions bilat upper lobes per CT 01/27/17" Aortic aneurysm (Chronic) "aneurysmal dilatation thoracic aorta, 4.[address] 01/27/17" Chronic pain (Chronic) COPD (chronic obstructive pulmonary disease) (Chronic) inhaler daily/prn Depression Hypertension (Chronic) Hypokalemia (Acute) Hyponatremia Multiple lung nodules on CT (Acute) Myocardial Infarction unsure when, found when screening for elbow sx 2014--follows with Dr. Carmona Osteoporosis Pulmonary emphysema (Acute) CT SCAN OF CHEST 2017 NOTED THE FOLLOWING: NUMEROUS LOW-ATTENUATION LESIONS IDENTIFIED WITHIN THE NEURAL FORAMINA OF THE THORACIC SPINE. THESE ARE NOT SIGNIFICANTLY CHANGED DATING BACK TO 2012. TOP DIFFERENTIAL CONSIDERATIONS INCLUDE SMALL PSEUDOMENINGOCELES, NERVE SHEATH CYSTS, OR NERVE SHEATH TUMORS SUCH SCHWANNOMAS. THERE ARE OF DOUBTFUL SIGNIFICANCE GIVEN LONG-TERM STABILITY. CT SCAN OF CHEST 2018: ANEURYSMAL DILATATION OF THE ASCENDING THORACIC AORTA WHICH MEASURES UP TO 4.9CM. THIS HAS INCREASED IN SIZE FROM 01/27/2017. SURGICAL FOLLOW-UP IS RECOMMENDED. Past Family History Family History Other No family history of adverse response to anesthesia No pertinent family history in first degree relatives Past Surgical History Surgical History History of arthroscopy of right shoulder x2 History of elbow surgery right nerve sx History of right shoulder replacement (Chronic) History of tooth extraction Social History Smoking Status: Current every day smoker tobacco type: cigarettes Smoking cigarettes per day: 20 a day Do You Dip or Chew Tobacco: No Hx Alcohol Use: Yes Alcohol type: hard liquor alcohol intake frequency: other Alcohol Intake Frequency Comment: rarely Hx Substance Use: No substance use type: does not use Testing Laboratory Results 04/13/19 14:56 04/13/19 14:56 Electrocardiogram Date: 04/13/19 Findings: + NSR @ (65) Normal ECG. Other Testing CT chest 12/04/2017: IMPRESSION: 1. Significantly streak and motion compromised examination. 2. There is no evidence of central pulmonary embolus in the main, lobar, or proximal segmental pulmonary arteries. 3. Advanced emphysema. 4. There is aneurysmal dilatation of the ascending thoracic aorta which measures up to 4.9 cm. This has increased in size from 01/27/2017. Surgical follow-up is recommended. 5. There is extensive multifocal tree-in-bud airspace nodularity seen throughout both lungs, greatest in the right middle lobe and at the lung bases. The appearance suggests an infectious/inflammatory pneumonitis. Clinical correlation will be required. 6. There is a small focus of subpleural consolidative change in the anterior right upper lobe. This is also likely on an infectious/inflammatory basis. A small pulmonary infarct could also have this appearance. No pulmonary emboli were identified on today's examination which is significantly motion compromised. 7. There are persistent irregular nodules in the right lower and left upper lobes. These are not well assessed due to motion artifact and remain pathologically indeterminant. A 3 month follow-up chest CT is recommended for reassessment as neoplasm is not excluded. 8. Additional findings as above.
[~2019-05-03 10:05] MED LIST changes: -ACET-1256 PO; -AZIT-57 PO; -AZITTAB PO; +CEFAZOLIN 2000MG 2,000 MG/15 ML SYR IV SCH; -CYM30 PO; +LR 15ML/HR IV SCH; -NRN400 PO; -NRV/10 PO; -POTA20TA16 PO; -PRD10 PO; -PRED-301 PO; -PRVHFAIN INH; +ROPIVACAINE 0.5% 5 MG/ML 30 ML VIAL ONE; -SPRIN INH; -SYMIN INH; -TPRSR/25 PO
[2019-05-03] MEDS ORDERED: LIDOCAINE HCL 2% 2 ML VIAL/AMP(20MG/ML) INFIL ONE (10:44)
[2019-05-03] MEDS ORDERED: NEOSTIGMINE METHYLSULFATE 5 MG/5 ML SYR ONE (10:44)
[2019-05-03] MEDS ORDERED: GLYCOPYRROLATE 0.2 MG/ML VIAL ONE (10:44)
[2019-05-03] MEDS ORDERED: DEXAMETHASONE SOD INJ 4 MG/ML VIAL ONE (10:44)
[2019-05-03] MEDS ORDERED: ONDANSETRON INJ 2 MG/ML 2 ML VIAL ONE (10:44)
[2019-05-03] MEDS ORDERED: PROPOFOL IV EMULSION 10 MG/ML 20 ML VIAL IV ONE (10:44)
[2019-05-03] MEDS ORDERED: MIDAZOLAM HCL 1 MG/ML 2ML VIAL ONE (10:44)
[2019-05-03] MEDS ORDERED: fentaNYL citrate 100 MCG/2 ML VIAL ONE (10:44)
[2019-05-03] MEDS ORDERED: ONDANSETRON INJ 2 MG/ML 2 ML VIAL IV PRN ×2 (11:14→15:24)
[2019-05-03] MEDS ORDERED: ePHEDrine sulfate 50 MG/ML AMP IV PRN (11:14)
[2019-05-03] MEDS ORDERED: ATROPINE SULFATE 0.1 MG/ML 10ML SYR IV PRN (11:14)
--- NOTE | 2019-05-03 11:30 | History & Physical Bridge Note ---
Date of Service May 03, 2019 History & Physical Bridge Note I have examined the patient, reviewed the History & Physical and in the interval since the performance of the History & Physical I have noted the following changes of clinical significance: consent obtained;stressed the complexity of the procedure and the multiple possible scearios including staging.no changes noted
[2019-05-03] MEDS ORDERED: THROMBIN FOR SOLN 20000 UNIT KIT ONE (11:31)
[2019-05-03] MEDS ORDERED: BACITRACIN INJ 50,000 UNIT VIAL ONE (11:31)
[2019-05-03] MEDS ORDERED: ePHEDrine sulfate 50 MG/ML SYR ONE (13:27)
[2019-05-03] MEDS ORDERED: ROCURONIUM BROMIDE 10 MG/ML 5 ML VIAL ONE (13:27)
[2019-05-03] MEDS ORDERED: PHENYLEPHRINE 100MCG/ML 5ML SYR ONE (13:27)
--- NOTE | 2019-05-03 13:51 | Post Operative Brief Note ---
Immediate Post Op Note v1 Date of Surgery May 03, 2019 Pre & Post Diagnosis Operation Date: 05/03/19 07:00 <No data on this case meets the specified criteria> Operation Date: 05/03/19 12:00 Pre-Op Diagnosis: Right Shoulder: Instability with Anterior Escape Total Shoulder Arthroplasty Post-Op Diagnosis: Right Shoulder: Instability with Anterior Escape Total Shoulder Arthroplasty I identified the patient and participated in the time-out.: Yes Procedure Operation Date: 05/03/19 07:00 <No data on this case meets the specified criteria> Operation Date: 05/03/19 12:00 Actual Procedures p Right Shoulder: Exploration with Humeral Head Exchange, Debridement, Pectoralis Major Reconstruction Subscapularis Tear(Right) - Jl Damon MD Surgeon Jl Damon MD Organizational Development Director [facility] Estimated Blood Loss 50 Findings Consistent with Post-Op Diagnosis Drains Hemovac Drain (single trocar hemovac)
--- NOTE | 2019-05-03 13:54 | Operative Report ---
Post Operative Report Pre & Post Diagnosis Operation Date: 05/03/19 07:00 <No data on this case meets the specified criteria> Operation Date: 05/03/19 12:00 Pre-Op Diagnosis: Right Shoulder: Instability with Anterior Escape Total Shoulder Arthroplasty Post-Op Diagnosis: Right Shoulder: Instability with Anterior Escape Total Shoulder Arthroplasty I identified the patient and participated in the time-out.: Yes Procedure Operation Date: 05/03/19 07:00 <No data on this case meets the specified criteria> Operation Date: 05/03/19 12:00 Actual Procedures p Right Shoulder: Exploration with Humeral Head Exchange, Debridement, Pectoralis Major Reconstruction Subscapularis Tear(Right) - Jl nava MD Surgeon LEEANNE Damon MD Cement Car Dumper edwina Estimated Blood Loss 50 Findings Consistent with Post-Op Diagnosis Specimens see operative report Drains R shoulder x 1 hemovac Disposition Accompanied Patient To Recovery: Yes Disposition: Recovery Room Indications This 59-year-old white male presented to the office with complaints of right shoulder instability after previous total shoulder arthroplasty. He had tried conservative care measures without improvement. Patient elected to proceed with surgical intervention after being educated about potential risks and outcomes. Preoperative imaging was obtained. Description of Procedure Patient was administered a regional block and then taken to the operating room where he was given general anesthesia. He was prepped and draped in the usual sterile fashion. Please see Dr. Damno's operative report for specifics of the procedure. I was present for the entire case from initial patient positioning through final wound closure. Assistance was provided in tissue retraction, hemostasis, hardware removal, new hardware placement, and final wound closure. Patient was taken to the recovery room in satisfactory condition. I attest to the content of the Intraoperative Record and any orders documented therein. Any exceptions are noted below.
--- NOTE | 2019-05-03 14:00 | Operative Report ---
Post Operative Report Pre & Post Diagnosis Operation Date: 05/03/19 07:00 <No data on this case meets the specified criteria> Operation Date: 05/03/19 12:00 Pre-Op Diagnosis: Right Shoulder: Instability with Anterior Escape Total Shoulder Arthroplasty Post-Op Diagnosis: Right Shoulder: Instability with Anterior Escape Total Shoulder Arthroplasty I identified the patient and participated in the time-out.: Yes Procedure Operation Date: 05/03/19 07:00 <No data on this case meets the specified criteria> Operation Date: 05/03/19 12:00 Actual Procedures p Right Shoulder: Exploration with Humeral Head Exchange, Debridement, Pectoralis Major Reconstruction Subscapularis Tear(Right) - Jl nava MD Surgeon Jl Damon MD Chief Controller edwina Estimated Blood Loss 50 Findings Consistent with Post-Op Diagnosis Specimens Tissues from R shoulder joint for microbiology and pathology Complications none Disposition Accompanied Patient To Recovery: Yes Disposition: Recovery Room Description of Procedure Semi-Beach chair position, standard prep and drape, Time out Right Shoulder: Exploration with Humeral Head Exchange, Debridement, Pectoralis Major Reconstruction Subscapularis Tear Please see DR Damon's procedure notes for specific details I was present throughout the case, assisted for wound closure and transferred the patient to PACU in stable condition I attest to the content of the Intraoperative Record and any orders documented therein. Any exceptions are noted below.
[2019-05-03] MEDS ORDERED: VANCOMYCIN HCL 1,000 MG in SODIUM CHLORIDE 0.9% 250 ML IV SCH (14:04)
[2019-05-03] MEDS: fentaNYL citrate 100 MCG/2 ML VIAL IV PRN ×2 (14:16→14:27)
--- NOTE | 2019-05-03 14:28 | XRay Report ---
XR shoulder RT 1V CLINICAL HISTORY: post op, in PACU COMPARISON: None. DISCUSSION: Anatomic alignment posttotal right shoulder arthroplasty. Good contact between prosthetic and underlying bone. Expected postoperative soft tissue change IMPRESSION: No acute process post total right shoulder arthroplasty. ACT 112: Negative or not required by law. The above report was generated using voice recognition software. It may contain grammatical, syntax or spelling errors. Electronically signed by: Isaías Blount M.D. 05/03/2019 2:26 PM
--- NOTE | 2019-05-03 14:33 | Progress Notes ---
DATE: 05/03/2019 SUBJECTIVE: The patient seen in the recovery room. He is awake and alert. He denies any chest pain, shortness of breath, fever, chills, nausea, vomiting or headache. Pain is well managed. OBJECTIVE: Vital signs are stable. He is afebrile. Postop x-rays look good. Wound dressing clean, dry and intact. Drainage minimal. ASSESSMENT: Status post pectoralis major transfer humeral head exchange, reconstruction of anterior capsule and subscapularis with pectoralis major transfer. At this point in time, things look good. Discussed in detail with him and his . Obviously, this is a salvage situation and hopefully this will work well for him. He states he understands that this may not be the end of his need for procedures. Keep overnight for pain management. Discharge tomorrow. Antibiotics.
--- NOTE | 2019-05-03 15:10 | Anesthesiology Progress Note ---
Date of Service May 03, 2019 Anesthesia Post Procedure Vital Signs Vital Signs: Temp Pulse Resp BP Pulse Ox 05/03/19 14:55 58 L 16 119/82 99 05/03/19 14:45 36.6 C 64 16 120/81 100 05/03/19 14:35 67 12 104/80 95 05/03/19 14:25 64 15 114/81 100 05/03/19 14:15 62 19 117/81 100 05/03/19 14:05 61 15 114/83 100 05/03/19 13:58 36.0 C L 73 17 129/92 96 05/03/19 10:19 36.6 C 63 20 137/96 97 Pain Intensity Right Shoulder: Pain Intensity: 3 Transfer of Care Handoff Completed per policy Notes Mental Status: alert / awake / arousable and participated in evaluation Patient Amnestic to Procedure: Yes Nausea / Vomiting: adequately controlled Pain: adequately controlled Airway Patency, RR, SpO2: stable & adequate BP & HR: stable & adequate Hydration State: stable & adequate Anesthetic Complications: no major complications apparent and Pt Satisfied with anesthetic care Notes: Block is functioning well
--- NOTE | 2019-05-03 15:11 | Operative Report (OR) ---
DATE OF OPERATION: 05/03/2019 SURGEON: Jl Damon MD. PRODUCT DEVELOPMENT WORKER: Dr. Haddad. SECOND PRODUCT DEVELOPMENT WORKER: Chris Kahn PA-C. PREOPERATIVE DIAGNOSIS: Anterior escape with chronic subscapularis insufficiency, right shoulder. POSTOPERATIVE DIAGNOSIS: Anterior escape with chronic subscapularis insufficiency, right shoulder. OPERATION PERFORMED: Exploration right shoulder, exchange humeral head and reconstruction subscapularis anterior capsule with pectoralis major subcoracoid process transfer. This is all on the right shoulder. PERIOPERATIVE SITUATION: Medically cleared male who has had chronic comorbidities for years following anterior escape from a rupture of the subscap, unable to get him to the OR in a timely fashion based on chronic multiple illnesses including bilateral sacral alar fractures that required the use of a walker in addition to multiple medical comorbidities including chronic wasting disease. 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 At this point in time his EMG nerve conduction study has been done revealing that there is nothing ample evidence to proceed with trying to salvage this by doing a pectoralis major repair if possible. This was discussed in detail with the patient including options of not doing anything, revising to a reverse shoulder or doing the muscle transfer or doing a fusion. He elected for the muscle transfer. DESCRIPTION OF PROCEDURE: The patient appropriately identified, site verified, consent verified, antibiotics for surgery, confirmed as being given. The right shoulder was examined revealing a reducibility of the anterior escape. He had excessive external rotation consistent with the subscapularis injury. He was then carefully placed in a beach chair position. The right upper extremity prepped free. Antibiotics confirmed as being given. A timeout was performed and the shoulder was exposed through the old incision and extended slightly proximally and distally. Full thickness flaps raised, care taken to get through the deltopectoral interval. Minor bleeding points controlled with electrocautery. Once encountered, one could see that the deficient anterior capsule and subscapularis, this was opened, then the subscapularis was actually identified and retrieved just about at the level of the glenoid. It was mobilized and was able to be used for incorporation into the reconstruction. The glenoid was examined after the humeral head was removed once the synovectomy was completed. The humeral stem was not loose. The glenoid was not loose. There was no obvious glenoid wear. As a result, it was elected to leave all of that alone. This was all irrigated. Synovectomy completed, all around the implants. Good exposure was obtained. Once this was done, a medial and lateral approach to the conjoined tendon was made and care taken to protect the musculocutaneous nerve. Once this was performed and completed multiple sutures were placed into the supraspinatus. These were #1 Ethibond in a Andrés-Boyd fashion. The 3 sutures on top and then 2 anchors 4.75 anchors placed, the lesser tuberosity was cleansed of soft tissue, they were placed there in an oblique fashion to avoid the implant. They were 4.75 anchors double loaded. Once this was all taken care of, the pectoralis was then mobilized from proximal to distal and then was dissected medially to the chest wall with care taken to protect its innervation. The sutures were then passed up the conjoined tendon and there was excellent mobility to the tendon and it actually came all the way up to the top of the rotator cuff. The sutures were then all tied in sequential fashion starting from proximal medial to proximal lateral and the double loaded SwiveLock anchors. These were all then tied together. The biceps was already previously tenodesed. Once this was done, the arm could be placed from belly to neutral and forward flexion of 30 degrees without any difficulty. The humeral head was clearly reduced as manually and visually assessed. The wound was then finally irrigated and closed. A deep drain placed. The wound was closed with 2-0 plain and stainless steel clips. Appropriate dressing applied and the patient transferred to recovery room in satisfactory condition having tolerated the procedure well. Obviously, this is a salvage procedure with modest results at best. The patient understood this as well as his . He was just trying to give him the most biologic shoulder he can have, again options were discussed including reverse shoulder replacement, fusion and the muscle transfer, he tried the muscle transfer since this is the least invasive procedure. It should be mentioned that CRP and sed rate done today were all normal. To be complete an intraoperative culture was obtained as well as pathology but no frozen section was performed. We will await permanent cultures to see if we need any kind of chronic antibiotics; however, things are quite good clinically. SUMMARY OF IMPLANTS: Advantage humeral head exchange size 44 x 18 SwiveLock double loaded 4.75 x 22 two anchors. Multiple sutures. EBL was roughly 50 mL Pathology pending on the tissue. No DVT prophylaxis at this point in time. We will keep him still for 6 weeks per protocol for a pectoralis major transfer. I attest to the content of the Intraoperative Record and any orders documented therein. Any exception s are noted below.
--- NOTE | 2019-05-03 15:19 | Discharge Summary (DS) ---
CHIEF COMPLAINT: Right shoulder pain. 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 He was unable to get to the OR for multiple comorbidities including medical other orthopedic issues, neurologic issues. At this point in time, he is cleared for surgery. Options were discussed in detail with him concerning what could be done to salvage his shoulder. These included shoulder fusion, pectoralis major transfer reconstruction of the subscapularis, conversion to reverse shoulder replacement, complete excision. At this point in time, he wanted to proceed with the least invasive way which would be humeral head exchange if the implants so we were amenable to that as well as soft tissue reconstruction for the subscapularis with pectoralis major transfer. He was cleared medically and EMG nerve conduction study revealing that his nerves recovered from his previous brachial plexus dysfunction from likely viral syndrome. PAST MEDICAL HISTORY: Remarkable for pulmonary emphysema, multiple lung nodules, personal history of nicotine dependence, history of sacral alar fractures, insufficiency fractures, poor nutrition. Past medical history also remarkable for aortic aneurysm, chronic pain, COPD, depression, hypertension, hypokalemia, hyponatremia, multiple lung nodules, myocardial infarction, osteoporosis, pulmonary emphysema. PAST SURGICAL HISTORY: Remarkable for shoulder surgery, elbow surgery, shoulder replacement, tooth extractions. FAMILY HISTORY: Reveals no pertinent positives. HOSPITAL COURSE: To date has been uneventful. Postop x-rays look good. ASSESSMENT: Overall, doing reasonably well status post subscapularis anterior capsular reconstruction with a pectoralis major transfer exchange humeral head, synovectomy of the shoulder. PLAN: At this point in time is to keep him overnight for pain management and IV antibiotics. Specimen was sent for permanent pathology and culture. Preoperative CRP and sed rate were normal. So incidence of infection is low.
[2019-05-03] MEDS ORDERED: TAMSULOSIN HCL 0.4 MG CAP PO PRN (15:24)
[2019-05-03] MEDS ORDERED: NALOXONE HCL 0.4 MG/1 ML VIAL/CARP IV PRN (15:24)
[2019-05-03] MEDS ORDERED: DiphenhydrAMINE HCL 50 MG/ML VIAL IV PRN (15:24)
[2019-05-03] MEDS ORDERED: MAGNESIUM HYDROXIDE SUSP 30 ML UDC PO PRN (15:24)
[2019-05-03] MEDS ORDERED: HYDROmorphone INJ 0.5 MG/0.5 ML SYR IV PRN (15:24)
[2019-05-03] MEDS ORDERED: bisacodyL 10 MG SUPP PR PRN (15:24)
[2019-05-03] MEDS ORDERED: ALUMINUM/MAGNESIUM SUSP 30 ML UDC PO PRN (15:24)
[2019-05-03] MEDS ORDERED: OXYCODONE HCL IR 5 MG TAB (IMMEDIATE RELEASE) PO PRN (15:24)
[2019-05-03] MEDS ORDERED: POTASSIUM CHLORIDE 20 MEQ TABCR PO PRN (15:24)
[2019-05-03] MEDS ORDERED: METOCLOPRAMIDE HCL INJ 5 MG/ML 2 ML VIAL IV PRN (15:24)
[2019-05-03] MEDS ORDERED: SODIUM CHLORIDE 0.9% 1000ML 1,000 ML IV SCH (15:40)
[2019-05-03] MEDS ORDERED: NICOTINE 7 MG/24 HR TDSY TD SCH (16:00)
[2019-05-03] MEDS: GABAPENTIN 400 MG CAP PO SCH ×2 (17:04→21:06)
[2019-05-03] MEDS: KETOROLAC 30 MG/ML VIAL IV SCH ×2 (17:04→21:06)
[2019-05-03] MEDS ORDERED: SENNA 8.6 MG TAB PO SCH (21:00)
[2019-05-03] MEDS: DOCUSATE SODIUM 100 MG CAP PO SCH (21:06)
[2019-05-03] MEDS: CEFAZOLIN 2000MG 2,000 MG/15 ML SYR IV SCH (21:06)
[2019-05-03] MEDS: ACETAMINOPHEN 500 MG TAB PO SCH (21:06)
[2019-05-04] MEDS: KETOROLAC 30 MG/ML VIAL IV SCH ×2 (04:45→09:09)
[2019-05-04] MEDS: CEFAZOLIN 2000MG 2,000 MG/15 ML SYR IV SCH (04:46)
[2019-05-04] MEDS: ACETAMINOPHEN 500 MG TAB PO SCH (06:18)
--- NOTE | 2019-05-04 06:55 | Progress Notes ---
DATE: 05/03/2019 SUBJECTIVE: No major difficulties last evening. Was able to get up and walk around, void, eat, drink, etc. Denies any chest pain, shortness of breath, fever, chills, nausea, vomiting or headache. OBJECTIVE: Vital signs are stable. He is afebrile. Neurovascular check is baseline. Wound dressing clean, dry and intact. Drainage minimum. ASSESSMENT: Doing well, will discharge to home today. Outpatient PT for dressing change. Will continue oral antibiotics until final cultures are back. Discharge today. Addendum Drain is discontinued. Minimal drainage. Of note, detailed neurologic examination reveals intact axillary and musculocutaneous, median, radian, ulnar nerve function distally. At this point in time, things look good. Discharge to home today. Dressing change later today either by PA or physical therapy depending on schedules. Discharge this morning. RAGHAV
[2019-05-04 07:25] LABS: Basophils # (auto) 0.01 K/uL (0-0.2); Basophils % (auto) 0.1 %; Eosinophils # (auto) 0.02 K/uL (0-0.5); Eosinophils % (auto) 0.2 %; Hematocrit (blood only) 36.3 % (42-52); Hemoglobin 12.2 g/dL (14.0-18.0); Immature Granulocytes # (auto) 0.03 K/uL (0.00-0.02); Immature Granulocytes % (auto) 0.3 %; Lymphocytes # (auto) 1.07 K/uL (1.2-3.4); Lymphocytes % (auto) 9.3 %; Mean Corpuscular Hemoglobin 30.9 pg (25-34); Mean Corpuscular Hgb Conc 33.6 g/dL (32-36); Mean Corpuscular Volume 91.9 fL (80-100); Monocytes # (auto) 1.29 K/uL (0.11-0.59); Monocytes % (auto) 11.2 %; Neutrophils # (auto) 9.13 K/uL (1.4-6.5); Neutrophils % (auto) 78.9 %; Platelet Count 180 K/uL (130-400); RDW Coefficient of Variation 13.3 % (11.5-14.5); RDW Standard Deviation 44.9 fL (36.4-46.3); Red Blood Count 3.95 M/uL (4.7-6.1); White Blood Count 11.55 K/uL (4.8-10.8)
[2019-05-04 07:59] LABS: Calcium 8.8 mg/dl (8.5-10.1); Creatinine Clr Calc Pharmacy 86.9 ml/min; Est GFR (African American) 110.8; Est GFR (Non-African American) 95.6; Potassium 3.8 mmol/L (3.5-5.1)
[2019-05-04] MEDS ORDERED: dexAMETHasone 10 MG in SYRINGE 0 ML IV SCH (08:00)
--- NOTE | 2019-05-04 08:09 | Anesthesiology Progress Note ---
Date of Service May 04, 2019 Anesthesia Post Procedure Vital Signs Vital Signs: Temp Pulse Pulse Resp BP Pulse Ox 05/04/19 07:30 36.5 C 62 17 138/90 99 05/04/19 02:49 36.7 C 67 16 109/72 95 05/03/19 22:56 36.4 C L 64 16 116/75 94 05/03/19 18:22 36.4 C L 72 15 111/73 94 05/03/19 17:19 36.3 C L 56 L 16 121/77 98 05/03/19 16:18 36.4 C L 62 16 118/79 100 05/03/19 15:51 62 16 121/81 100 05/03/19 15:20 36.5 C 63 16 117/77 96 05/03/19 14:55 58 L 16 119/82 99 05/03/19 14:45 36.6 C 64 16 120/81 100 05/03/19 14:35 67 12 104/80 95 05/03/19 14:25 64 15 114/81 100 05/03/19 14:15 62 19 117/81 100 05/03/19 14:05 61 15 114/83 100 05/03/19 13:58 36.0 C L 73 17 129/92 96 05/03/19 10:19 36.6 C 63 20 137/96 97 Pain Intensity Right Shoulder: Pain Intensity: 3 Notes Mental Status: alert / awake / arousable and participated in evaluation Patient Amnestic to Procedure: Yes Nausea / Vomiting: adequately controlled Pain: adequately controlled Airway Patency, RR, SpO2: stable & adequate BP & HR: stable & adequate Hydration State: stable & adequate Anesthetic Complications: no major complications apparent and Pt Satisfied with anesthetic care
[2019-05-04] MEDS ORDERED: DULOXETINE HCL 30 MG CAP PO SCH (09:00)
[2019-05-04] MEDS ORDERED: METOPROLOL SUCC 25MG EXT REL TAB PO SCH (09:00)
[2019-05-04] MEDS ORDERED: MULTIVITAMIN TAB PO SCH (09:00)
[2019-05-04] MEDS ORDERED: AMLODIPINE BESYLATE 5 MG TAB PO SCH (09:00)
[2019-05-04] MEDS ORDERED: ASPIRIN 81 MG ECTAB PO SCH (09:00)
[2019-05-04] MEDS ORDERED: FLUTICASONE FUROATE 100MCG 14 PUFFS/INHALER INH SCH (09:00)
[2019-05-04] MEDS: UMECLIDINIUM/VILANTEROL 62.5/25MCG 7 PUFFS/INHALER INH SCH ×2 (09:03)
[2019-05-04] MEDS: DOCUSATE SODIUM 100 MG CAP PO SCH (09:06)
[2019-05-04] MEDS: GABAPENTIN 400 MG CAP PO SCH (09:07)
== END 2019-05-04 10:15 | disposition home or self-care (01) ==
LOC: 3E 10:05 → ASU 10:05